=== PATIENT | female | born 1935 | race Caucasian/White ===

== ENCOUNTER 2021-01-09 12:39 | Inpatient (IN) | payer MEDICARE, MEDICAID, SELFPAY ==
--- NOTE | 2021-01-09 12:53 | XRR_ITS ---
PROCEDURE INFORMATION: Exam: XR Chest Exam date and time: 01/09/2021 12:53 PM Age: 85 years old Clinical indication: Other: Weakness; Patient HX: Altered mental status TECHNIQUE: Imaging protocol: XR of the chest. Views: 1 view. COMPARISON: CR Chest 1 view [id number] 08/05/2015 4:40 AM FINDINGS: Lungs: There is chronic lung change. No acute pneumonia or edema. Pleural spaces: Unremarkable. No pleural effusion. No pneumothorax. Heart/Mediastinum: Unremarkable. No cardiomegaly. Bones/joints: There is a thoracolumbar spine scoliosis. XR/XR chest 1V portable [id number] IMPRESSION: There are no acute concerning abnormalities. Radiation Dose CTDIVOL = (mGy): DLP = (mGy-cm)
--- NOTE | 2021-01-09 12:54 | ECG_ITS ---
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[id number] Requested By: Halie Mensah Order Number: [id number] Reading MD: ANANDA CORNELL Measurements Intervals [place] Rate: 96 P: 37 TN: 139 QRS: 45 QRSD: 82 T: 28 QT: 352 QTc: 447 Interpretive Statements SINUS RHYTHM LOW QRS VOLTAGE IN PRECORDIAL LEADS [QRS DEFLECTION < 1.0 mV IN CHEST LEADS] Compared to ECG 08/04/2015 10:28:42 Low QRS voltage now present Sinus tachycardia no longer present Myocardial infarct finding no longer present Electronically Signed On 01-09-2021 22:57:07 CDT by ANANDA CORNELL [id number] f
[2021-01-09 13:14] VITALS: BP 104/57; PULSE 97; RESP 18; TEMP 36.4; O2SAT 97; BMI 22.7
[2021-01-09 14:28] LABS: Basophils # 0.1 10^3/uL (0.0-0.1); Basophils % 0.3 %; Eosinophils # 0.2 10^3/uL (0.0-0.8); Hematocrit 49.8 % (37.0-47.0); Hemoglobin 15.7 g/dL (11.5-15.3); Lymphocytes # 4.4 10^3/uL (0.8-4.8); Lymphocytes % 24.3 %; Mean Corpuscular HGB Conc 31.5 g/dL (30.0-36.0); Mean Corpuscular Volume 101.4 fl (81-99); Mean Platelet Volume 10.2 fL (7.4-10.4); Monocytes # 1.1 10^3/uL (0.2-0.9); Monocytes % 5.9 %; Neutrophils # 12.17 10^3/uL (1.8-7.7); Neutrophils % 68.1 %; Nucleated Red Blood Cells % 0.1 %; Platelet Count 287 10^3/cmm (130-400); Red Blood Count 4.91 10^6/uL (4.1-5.3); Red Cell Distribution Width 16.6 % (12.1-15.1); White Blood Count 17.9 10^3/uL (4.0-10.0)
[2021-01-09 14:49] LABS: Troponin(5th) Baseline 40 ng/L (0-10)
[2021-01-09 14:51] LABS: Alanine Aminotransferase 105 U/L (0-33); Albumin Level 3.8 g/dL (3.5-5.2); Alkaline Phosphatase 71 IU/L (35-105); Aspartate Amino Transferase 54 U/L (0-32); Blood Urea Nitrogen 42 mg/dL (8-23); Calcium 9.5 mg/dL (8.5-10.5); Carbon Dioxide 31 mmol/L (22-29); Chloride 128 mmol/L (98-107); Globulin 3.3 g/dL (1.3-4.6); Glucose 182 mg/dL (65-115); Lipase 21 U/L (13-60); Osmolality Calculated 357 mOsm/kg (285-295); Total Bilirubin 0.7 mg/dL (0.15-1.2); Total Protein 7.1 g/dL (6.6-8.7)
[2021-01-09 14:53] LABS: Sodium 166 mmol/L (136-145)
--- NOTE | 2021-01-09 15:28 | W.ED.GENADLT ---
HPI - General Adult General: Chief complaint: General Medical Stated complaint: Weakness Time Seen by Provider: 01/09/21 15:17 History of Present Illness: HPI narrative: 85-year-old female who is brought in by family members. She is at home that she had elevated blood sugars they brought her to her doctor's office rechecked it was over 200 they did some other blood work and then called her back and referred her to the ER. On arrival here she is evaluated laboratory studies done shows sodium 160. She is nonverbal due to dementia which is her normal baseline. There is no history of any trauma. Onset (ago): day(s) Severity: severe Relieving factors: none Exacerbating factors: none Associated symptoms: Reports confusion Treatments prior to arrival: none Review of Systems General: Reports: ROS unobtainable due to medical condition and ROS unobtainable due to mental status Neuro: Reports: confusion PFS ED PFSH: Medical History Advanced dementia Breast cancer Cecal volvulus Congestive heart failure Diabetic foot ulcer Pulmonary embolism Pulmonary fibrosis determined by high resolution computed tomography Severe protein-energy malnutrition Type 2 diabetes mellitus Surgical History H/O hemicolectomy History of cholecystectomy Physical Exam Const: COMMON NORMALS: no acute distress HENMT: COMMON NORMALS: normocephalic and atraumatic HEAD & SCALP: normocephalic and atraumatic OTHER: Oral mucosa dry Neck/C-Spine: COMMON NORMALS: no JVD Resp: COMMON NORMALS: normal respiratory effort, No retractions, No use of accessory muscles and clear to auscultation bilaterally AUSCULTATION: clear to auscultation bilaterally Cardio: COMMON NORMALS: no JVD, regular rate, regular rhythm and No murmurs present (Cardio) RATE: regular rate RHYTHM: regular rhythm GI: COMMON NORMALS: Soft to palpation and No hepatosplenomegaly present AUSCULTATION: Yes normoactive bowel sounds PALPATION: Yes Soft to palpation, No Tenderness to palpation present (GI), No Guarding due to palpation present (GI) and Yes No hepatosplenomegaly present Extremity: COMMON NORMALS: normal to inspection, capillary refill normal, no clubbing, cyanosis or edema, no calf tenderness and no pedal edema Skin: COMMON NORMALS: no rashes or lesions noted GENERAL SKIN EXAM: no rashes or lesions noted Course Vital Signs: Vital signs: Vital Signs Temperature 98.2 F 01/10/21 11:30 Pulse Rate 79 01/10/21 11:30 Respiratory Rate 16 01/10/21 11:30 Blood Pressure 122/72 01/10/21 11:30 Pulse Oximetry 97 01/10/21 11:30 MDM - General Adult MDM Narrative: Medical decision making narrative: Patient has significant hypernatremia and altered mental status as well as a UTI. Working to go ahead and admit her. Some of this is just poor p.o. intake. IV fluids discussed with hospitalist orders written. Lab Data: Labs: Lab Results 01/09/21 01/09/21 01/09/21 13:25 14:19 14:19 WBC 17.9 10^3/uL H 10 ^3/uL (4.0-10.0) RBC 4.91 10^6/uL 10^6 /uL (4.1-5.3) Hgb 15.7 g/dL H g/dL (11.5-15.3) Hct 49.8 % H % (37.0-47.0) MCV 101.4 fl H fl (81-99) MCH 32.0 pg pg (28.0-34.0) MCHC 31.5 g/dL g/dL (30.0-36.0) RDW 16.6 % H % (12.1-15.1) Plt Count 287 10^3/cmm 10^3 /cmm (130-400) MPV 10.2 fL fL (7.4-10.4) Neut % (Auto) 68.1 % % Lymph % (Auto) 24.3 % % [place] % (Auto) 5.9 % % Eos % (Auto) 1.0 % % Baso % (Auto) 0.3 % % Neut # (Auto) 12.17 10^3/uL H 1 0^3/uL (1.8-7.7) Lymph # (Auto) 4.4 10^3/uL 10^3/ uL (0.8-4.8) [place] # (Auto) 1.1 10^3/uL H 10^ 3/uL (0.2-0.9) Eos # (Auto) 0.2 10^3/uL 10^3/ uL (0.0-0.8) Baso # (Auto) 0.1 10^3/uL 10^3/ uL (0.0-0.1) Nucleated RBC % (a uto) 0.1 % % Nucleated RBCs # 0.0 /100WBC /100W BC Sodium 166 mmol/L H* mmo l/L (136-145) Potassium 4.0 mmol/L mmol/L (3.5-5.1) Chloride 128 mmol/L H mmol /L (98-107) Carbon Dioxide 31 mmol/L H mmol/ L (22-29) Anion Gap 11.0 (5-19) BUN 42 mg/dL H mg/dL (8-23) Creatinine 0.9 mg/dL mg/dL (0.5-0.9) GFR Calculation Not Reportable Glucose 182 mg/dL H mg/dL (65-115) POC Glucose 230 mg/dL H mg/dL (70-110) Calculated Osmolal ity 357 mOsm/kg H mOs m/kg (285-295) Calcium 9.5 mg/dL mg/dL (8.5-10.5) Iron TIBC % Saturation Unsat Iron Binding Total Bilirubin 0.7 mg/dL mg/dL (0.15-1.2) AST 54 U/L H U/L (0-32) ALT 105 U/L H U/L (0-33) Alkaline Phosphata se 71 IU/L IU/L (35-105) Troponin T Baselin e Total Protein 7.1 g/dL g/dL (6.6-8.7) Albumin 3.8 g/dL g/dL (3.5-5.2) Globulin 3.3 g/dL g/dL (1.3-4.6) Lipase 21 U/L U/L (13-60) Vitamin B12 Folate Procalcitonin TSH Urine Color Urine Appearance Urine pH Ur Specific Gravit y Urine Protein Urine Glucose (UA) Urine Ketones Urine Blood Urine Nitrate Urine Bilirubin Prot Sulfosalicyli c Acd Urine Urobilinogen Ur Leukocyte Lisa ase Urine RBC Urine WBC Ur Squamous Epith Cells Amorphous Sediment Urine Bacteria Ur Random Sodium Ur Random Potassiu m Ur Random Chloride RPR 1001/09/21 01/09/21 14:19 14:19 14:19 WBC RBC Hgb Hct MCV MCH MCHC RDW Plt Count MPV Neut % (Auto) Lymph % (Auto) [place] % (Auto) Eos % (Auto) Baso % (Auto) Neut # (Auto) Lymph # (Auto) [place] # (Auto) Eos # (Auto) Baso # (Auto) Nucleated RBC % (a uto) Nucleated RBCs # Sodium Potassium Chloride Carbon Dioxide Anion Gap BUN Creatinine GFR Calculation Glucose POC Glucose Calculated Osmolal ity Calcium Iron 32 ug/dL L ug/dL (37-145) TIBC 190 mcg/dl mcg/dl % Saturation 16.8 % L % (20-50) Unsat Iron Binding 158 ug/dL ug/dL (112-347) Total Bilirubin AST ALT Alkaline Phosphata se Troponin T Baselin e 40 ng/L H ng/L (0-10) Total Protein Albumin Globulin Lipase Vitamin B12 Folate Procalcitonin 0.29 ng/mL ng/mL (0-0.5) TSH 2.31 uIU/mL uIU/m L Cancelled (0.27-4.20) Urine Color Urine Appearance Urine pH Ur Specific Gravit y Urine Protein Urine Glucose (UA) Urine Ketones Urine Blood Urine Nitrate Urine Bilirubin Prot Sulfosalicyli c Acd Urine Urobilinogen Ur Leukocyte Lisa ase Urine RBC Urine WBC Ur Squamous Epith Cells Amorphous Sediment Urine Bacteria Ur Random Sodium Ur Random Potassiu m Ur Random Chloride RPR 01/09/21 01/09/21 01/09/21 14:19 14:19 15:27 WBC RBC Hgb Hct MCV MCH MCHC RDW Plt Count MPV Neut % (Auto) Lymph % (Auto) [place] % (Auto) Eos % (Auto) Baso % (Auto) Neut # (Auto) Lymph # (Auto) [place] # (Auto) Eos # (Auto) Baso # (Auto) Nucleated RBC % (a uto) Nucleated RBCs # Sodium Potassium Chloride Carbon Dioxide Anion Gap BUN Creatinine GFR Calculation Glucose POC Glucose Calculated Osmolal ity Calcium Iron TIBC % Saturation Unsat Iron Binding Total Bilirubin AST ALT Alkaline Phosphata se Troponin T Baselin e Total Protein Albumin Globulin Lipase Vitamin B12 595 pg/mL pg/mL (232-1245) Folate > 20.0 ng/mL ng/m L (4.8-37.3) Procalcitonin TSH Urine Color Yellow (Yellow) Urine Appearance Cloudy (CLEAR) Urine pH 8 H (5-7) Ur Specific Gravit y 1.010 (1.005-1.030) Urine Protein Neg (Negative) Urine Glucose (UA) Norm (Normal) Urine Ketones Negative (Negative) Urine Blood 3+ H (Negative) Urine Nitrate Negative (Negative) Urine Bilirubin Neg (Negative) Prot Sulfosalicyli c Acd Positive (Negative) Urine Urobilinogen Norm mg/dL mg/dL (Negative) Ur Leukocyte Lisa ase 1+ H (Negative) Urine RBC 25-40 /hpf H /hpf (0-2) Urine WBC >100 /hpf H /hpf (0-5) Ur Squamous Epith Cells 0-4 /hpf H /hpf (0-5) Amorphous Sediment Not Reportable Urine Bacteria 4+ /hpf H /hpf (NONE) Ur Random Sodium Ur Random [place]ass[place] m Ur Random Chloride RPR Nonreactive (Nonreactive) 01/09/21 15:27 WBC RBC Hgb Hct MCV MCH MCHC RDW Plt Count MPV Neut % (Auto) Lymph % (Auto) [place] % (Auto) Eos % (Auto) Baso % (Auto) Neut # (Auto) Lymph # (Auto) [place] # (Auto) Eos # (Auto) Baso # (Auto) Nucleated RBC % (a uto) Nucleated RBCs # Sodium Potassium Chloride Carbon Dioxide Anion Gap BUN Creatinine GFR Calculation Glucose POC Glucose Calculated Osmolal ity Calcium Iron TIBC % Saturation Unsat Iron Binding Total Bilirubin AST ALT Alkaline Phosphata se Troponin T Baselin e Total Protein Albumin Globulin Lipase Vitamin B12 Folate Procalcitonin TSH Urine Color Urine Appearance Urine pH Ur Specific Gravit y Urine Protein Urine Glucose (UA) Urine Ketones Urine Blood Urine Nitrate Urine Bilirubin Prot Sulfosalicyli c Acd Urine Urobilinogen Ur Leukocyte Lisa ase Urine RBC Urine WBC Ur Squamous Epith Cells Amorphous Sediment Urine Bacteria Ur Random Sodium 108 mmol/L mmol/L Ur Random [place] m > 107 mmol/L mmol /L Ur Random Chloride 123 mmol/L mmol/L RPR Discharge Plan Discharge Patient Disposition: Admitted As Inpatient Admit Provider: Miky Rey Clinical Impression: Hypernatremia, AMS (altered mental status), UTI (urinary tract infection), Dehydration, Type 2 diabetes mellitus, Severe protein-energy malnutrition, Advanced dementia Condition: Stable Coding Level of Care Code ED System Validation Engineer for Eden Waterman
--- NOTE | 2021-01-09 15:37 | PC.PHAR ---
pts son states he takes the care of the pts medications-pts son states the dr just started the pt back on metformin-pts son states the pt is taking 500mg qam-rx last filled 500mg bid on 06/11/20-notes are made in the pharmacy comments-pts son states he gives the pt milk of mag 4 tablespoonfuls qam
[2021-01-09 15:55] VITALS: BP 131/69; PULSE 88; RESP 19; O2SAT 99
[2021-01-09 16:02] LABS: Blood Urine 3+ (Negative); Glucose Urine UA Norm (Normal); Ketones Urine Negative (Negative); Nitrate Urine Negative (Negative); Protein Urine Neg (Negative); Urine Appearance Cloudy (CLEAR); Urine Color Yellow (Yellow); pH Urine 8 (5-7)
[2021-01-09 16:03] LABS: Add Urine Microscopic? YES; Bilirubin Urine Neg (Negative); Leukocyte Esterase Urine 1+ (Negative); Sulfosalicylic Acid Urine Positive (Negative); Urobilinogen Urine Norm (Negative)
[2021-01-09 16:06] LABS: Bacteria Urine 4+ /hpf; RBC Urine 25-40 /hpf (0-2); Squamous Epithelial Cell Urine 0-4 /hpf (0-5); WBC Urine >100 /hpf (0-5)
[2021-01-09 16:07] LABS: Add Urine Culture? Yes
--- NOTE | 2021-01-09 16:08 | CTR_ITS ---
PROCEDURE INFORMATION: Exam: CT Head Without Contrast Exam date and time: 01/09/2021 4:08 PM Age: 85 years old Clinical indication: Injury or trauma; Fall; Blunt trauma (contusions or hematomas) TECHNIQUE: Imaging protocol: Computed tomography of the head without contrast. Radiation optimization: All CT scans at this facility use at least one of these dose optimization techniques: automated exposure control; mA and/or kV adjustment per patient size (includes targeted exams where dose is matched to clinical indication); or iterative reconstruction. COMPARISON: CT head wo con* [id number] 01/27/2015 1:34 PM RADIATION DOSE METRICS: Total DLP (mGy-cm): 1614.97 FINDINGS: Brain: Moderate white matter disease and volume loss are identified. There is no acute infarct or edema. No hemorrhage. Cerebral ventricles: No ventriculomegaly. Paranasal sinuses: Visualized sinuses are unremarkable. No fluid levels. Mastoid air cells: Visualized mastoid air cells are well aerated. Bones/joints: Unremarkable. No acute fracture. Soft tissues: Unremarkable. CT/CT head wo con* [id number] IMPRESSION: There are no acute concerning abnormalities. Radiation Dose CTDIVOL = (mGy): DLP = 1614.97 (mGy-cm)
--- NOTE | 2021-01-09 16:08 | CTR_ITS ---
PROCEDURE INFORMATION: Exam: CT Cervical Spine Without Contrast Exam date and time: 01/09/2021 4:08 PM Age: 85 years old Clinical indication: Injury or trauma; Fall; Blunt trauma; Additional info: Fall. PT non verbal TECHNIQUE: Imaging protocol: Computed tomography images of the cervical spine without contrast. Radiation optimization: All CT scans at this facility use at least one of these dose optimization techniques: automated exposure control; mA and/or kV adjustment per patient size (includes targeted exams where dose is matched to clinical indication); or iterative reconstruction. COMPARISON: CT facial bones wo con* [id number] 01/09/2021 4:43 PM RADIATION DOSE METRICS: Total DLP (mGy-cm): 349.16 FINDINGS: Vertebrae: No acute fracture. Normal alignment. Degenerative change is identified in the spine. There is disc space narrowing and osteophyte formation especially at C5/6 and C6/7. Soft tissues: Unremarkable. Lungs: Lung apices are normal. CT/CT cervical spin wo con* [id number] IMPRESSION: There is no evidence for fracture or facet dislocation. Radiation Dose CTDIVOL = (mGy): DLP = 349.16 (mGy-cm)
--- NOTE | 2021-01-09 16:08 | CTR_ITS ---
PROCEDURE INFORMATION: Exam: CT Maxillofacial Without Contrast Exam date and time: 01/09/2021 4:08 PM Age: 85 years old Clinical indication: Injury or trauma; Blunt trauma (contusions or hematomas); Forehead; Injury details: Fall. PT non verbal; Additional info: Fall trauma TECHNIQUE: Imaging protocol: Computed tomography images of the face without contrast. Radiation optimization: All CT scans at this facility use at least one of these dose optimization techniques: automated exposure control; mA and/or kV adjustment per patient size (includes targeted exams where dose is matched to clinical indication); or iterative reconstruction. COMPARISON: CT head wo con* [id number] 01/09/2021 4:39 PM RADIATION DOSE METRICS: Total DLP (mGy-cm): 1462.41 FINDINGS: Orbital cavity: Orbits are normal. Globes are unremarkable. Bones/joints: There is a minimally displaced nasal fracture. The zygomatic arch, pterygoid plates and mandible are intact. Paranasal sinuses: Normal. No air-fluid levels. Soft tissues: Unremarkable. CT/CT facial bones wo con* [id number] IMPRESSION: There is a minimally displaced nasal fracture. Radiation Dose CTDIVOL = (mGy): DLP = 1462.41 (mGy-cm)
[2021-01-09 17:11] VITALS: BP 107/72; PULSE 87; RESP 20; O2SAT 98
[2021-01-09 17:11] LABS: Troponin 5 2HR 35.39 ng/L (0-10)
[2021-01-09 17:13] LABS: Troponin 5 2HR Delta -4.61 ABS# (0-10)
[2021-01-09 17:16] LABS: Glucose Point of Care 230 mg/dL (70-110)
[2021-01-09 17:42] LABS: Procalcitonin 0.29 ng/mL (0-0.5); Thyroid Stimulating Hormone 2.31 uIU/mL (0.27-4.20)
[2021-01-09] MEDS: dextrose 5% 1,000 ML 75 ML IV (17:51)
[2021-01-09] MEDS: famotidine 20 mg/2 mL INJ IVP (17:51)
[2021-01-09] MEDS: cefTRIAXone 1,000 MG in sodium chloride 0.9% (plus) 50 ML 100 MG IV (17:52)
[2021-01-09 17:53] LABS: Iron 32 ug/dL (37-145); Percent Saturation 16.8 % (20-50); Total Iron Binding Capacity 190 mcg/dl; Unsaturated Iron Binding 158 ug/dL (112-347)
[2021-01-09 17:55] LABS: Urine Random Chloride 123 mmol/L; Urine Random Sodium 108 mmol/L
[2021-01-09 18:28] VITALS: BP 120/88; PULSE 87; RESP 16; O2SAT 98
--- NOTE | 2021-01-09 18:54 | ECG_ITS ---
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[id number] Requested By: Halie Mensah Order Number: [id number] Reading MD: ANANDA CORNELL Measurements Intervals [place] Rate: 81 P: 47 [place]: 164 QRS: 2 QRSD: 57 T: -2 QT: 314 QTc: 366 Interpretive Statements SINUS RHYTHM LOW QRS VOLTAGE IN PRECORDIAL LEADS [QRS DEFLECTION < 1.0 mV IN CHEST LEADS] POSSIBLE ANTERIOR MYOCARDIAL INFARCTION , OF INDETERMINATE AGE [30 ms Q WAVE IN V3/V4, OR R < 0.2 mV IN V4] Compared to ECG 01/09/2021 13:30:02 Myocardial infarct finding now present Electronically Signed On 01-09-2021 22:57:35 CDT by ANANDA CORNELL [id number]
--- NOTE | 2021-01-09 19:14 | CTR_ITS ---
PROCEDURE INFORMATION: Exam: CT Chest With Contrast; Diagnostic Exam date and time: 01/09/2021 7:14 PM Age: 85 years old Clinical indication: Fever; Shortness of breath; Additional info: Sepsis, possible pe TECHNIQUE: Imaging protocol: Diagnostic computed tomography of the chest with contrast. Radiation optimization: All CT scans at this facility use at least one of these dose optimization techniques: automated exposure control; mA and/or kV adjustment per patient size (includes targeted exams where dose is matched to clinical indication); or iterative reconstruction. Contrast material: OMNI 300; Contrast volume: 95 ml; Contrast route: INTRAVENOUS (IV); COMPARISON: CR XR chest 1V portable [id number] 01/09/2021 1:03 PM RADIATION DOSE METRICS: Total DLP (mGy-cm): 1702.2 FINDINGS: Lungs: There are bilateral subpleural densities. Honeycombing is suspected in the bilateral lung bases. No dominant lung mass. Pleural spaces: Unremarkable. No pneumothorax. No pleural effusion. Heart: Cardiomegaly is identified. Aorta: Unremarkable. No aortic aneurysm. Lymph nodes: Unremarkable. No enlarged lymph nodes. Bones/joints: Degenerative change is identified in the spine. Soft tissues: Unremarkable. No evidence for a pulmonary artery embolus. IMPRESSION: There is no evidence for a pulmonary artery embolus. Findings are suggestive of pulmonary fibrosis. PROCEDURE INFORMATION: Exam: CT Abdomen And Pelvis With Contrast Exam date and time: 01/09/2021 7:14 PM Age: 85 years old Clinical indication: Fever; Shortness of breath; Additional info: Sepsis, possible pe TECHNIQUE: Imaging protocol: Computed tomography of the abdomen and pelvis with contrast. Radiation optimization: All CT scans at this facility use at least one of these dose optimization techniques: automated exposure control; mA and/or kV adjustment per patient size (includes targeted exams where dose is matched to clinical indication); or iterative reconstruction. Contrast material: OMNI 300; Contrast volume: 95 ml; Contrast route: INTRAVENOUS (IV); COMPARISON: CR XR chest 1V portable [id number] 01/09/2021 1:03 PM RADIATION DOSE METRICS: Total DLP (mGy-cm): 1702.2 FINDINGS: Liver: Normal. No mass. Gallbladder and bile ducts: There has been a cholecystectomy. Pancreas: Normal. No ductal dilation. Spleen: Normal. No splenomegaly. Adrenal glands: Normal. No mass. Kidneys and ureters: Normal. No hydronephrosis. Stomach and bowel: Colonic diverticula are present although there are no CT findings to suggest diverticulitis. No bowel obstruction or wall thickening. Appendix: There has been appendectomy. Intraperitoneal space: Unremarkable. No free air. No significant fluid collection. Vasculature: Unremarkable. No abdominal aortic aneurysm. Lymph nodes: Unremarkable. No enlarged lymph nodes. Urinary bladder: There is mild bladder wall thickening. No bladder emphysema or calcification. Reproductive: Unremarkable as visualized. Bones/joints: Unremarkable. No acute fracture. Soft tissues: Unremarkable. CT/CT chest abd pel w con* IMPRESSION: Findings are suggestive of mild bladder cystitis.Clinical correlation is advised. Radiation Dose CTDIVOL = (mGy): DLP = 1702.2~1702.2 (mGy-cm)
--- NOTE | 2021-01-09 19:16 | P.HP_ITS ---
Providers/Chief Complaint Admitting Physician: Miky Rey MD Primary Care Provider: Mahesh Perera MD Chief Complaint: Weakness History of Present Illness Hisptory taken by chart review and thru ERP Joleen Orr is a 85 year old female with PMH of advanced dementia, PE, pulmonary fibrosis, T2DM brought in today from home by son because of worsening weakness. As per the son at baseline pt eats minced foods and is dependant on ADLs on son and IHS. But was usually ambulatory till few weeks ago since when she has been getting progressively weak with possible fall few days ago. In ER she was found to have WBC of 17.9, hb of 15.7, na of 166, cl of 128, CO2 of 31, UA concerning for UTI with various imaging as below. Asper my discussion with son over the phone who is primary caregiver, patient is full code and if needed he will be okay with PEG tube placement as well. Review of Systems General: Reports: ROS unobtainable due to mental status Medications/Allergies Home Medications Medication Instructions Recorded Confirmed Last Taken Type acetaminophen [Tylenol Ex Str 500 mg PO BID 01/09/21 01/09/21 01/09/21 History Rapid Release] albuterol sulfate 2.5 mg INHALATION Q4H PRN 01/09/21 01/09/21 Unknown History diphenhydramine HCl [Allergy 25 mg PO BID 01/09/21 01/09/21 01/09/21 History Relief(diphenhydramin)] magnesium hydroxide [Milk of See Rx Instructions .ROUTE .COMPLEX 01/09/21 01/09/21 01/09/21 History Magnesia] metformin 500 mg PO QAM 01/09/21 01/09/21 01/09/21 History montelukast 10 mg PO QAM 01/09/21 01/09/21 01/09/21 History multivitamin 1 tab PO QAM 01/09/21 01/09/21 01/09/21 History Allergies Allergy/AdvReac Type Severity Reaction Status Date / Time No Known Allergies Allergy Unverified 01/09/21 15:37 PFSH Acute PFSH: Medical History (Updated 01/09/21 @ 22:29 by Miky Rey MD) Advanced dementia Breast cancer Cecal volvulus Congestive heart failure Diabetic foot ulcer Pulmonary embolism Pulmonary fibrosis determined by high resolution computed tomography Severe protein-energy malnutrition Type 2 diabetes mellitus Surgical History (Updated 01/09/21 @ 17:11 by Miky Rey MD) H/O hemicolectomy History of cholecystectomy Vitals/I&O/Wt Last Vital Signs Temp 97.5 F L 01/09/21 13:14 Pulse 87 01/09/21 18:28 Resp 16 01/09/21 18:28 BP 120/88 01/09/21 18:28 Pulse Ox 98 01/09/21 18:28 Weight last 48 hrs Weight 65.771 kg Physical Exam Narrative: EXAM NARRATIVE: General: No acute distress, awake but oriented, aphasic (baseline as per son), dehydrated HEENT: PERRLA, pupils bilaterally equal and reactive Chest: Bronchial breath sounds, equal good air entry bilaterally CVS: S1-S2 regular, no murmurs, no tachycardia, no gallops, no rubs Abdomen: Soft, no organomegaly, bowel sounds present, central post OP well healed scar present. Neuro: No focal deficits, moving all limbs Data : 01/09/21 14:19 01/09/21 20:47 Micro: Microbiology 01/09/21 17:36 Blood Culture - Preliminary Blood SPECIMEN COLLECTED 01/09/21 17:30 Blood Culture - Preliminary Blood SPECIMEN COLLECTED A&P Assessment and plan (1) Hypernatremia: Status: Acute (2) AMS (altered mental status): Status: Acute (3) Advanced dementia: Status: Acute (4) UTI (urinary tract infection): Status: Acute (5) Dehydration: Status: Acute (6) Severe protein-energy malnutrition: Status: Acute (7) Type 2 diabetes mellitus: Status: Acute Additional A&P Information AMS : Most likely not too different than baseline. Worsening of severe advance dementia 2/2 hypernatremia and UTI. UTI: F/u Bcx, UCx, Legionella, bacterial antigen Start on IV ceftriaxone. Hypernatremia: 2/2 Dehydration from poor oral intake. FW deficit- 5.5L Check urine lytes. D5 @ 75/hr BMP Q8h. If no improvement will try NGT placement for further FW supplementation. T2DM: Check A1c, lipid panel ISS low dose sliding scale Q4h Advance dementia: Not on any oral meds PT/Speech eval. NPO for now. Will advance diet as per eval. Check Iron panel, random cortisol level, b12, folate, RPR, lipid panel, A1c, TSH, lower limb doppler Code status: FC as per son. NPO Heparin Q12h Case management consult Attestations Medical Necessity Statement*: For more than 2 MN for Severe hypernatremia, UTI, severe dementia Time Spent in Patient Care: Greater than 35 minutes (>than 50% of time spent in counselling and/or direct pt care on unit) . Coding Level of Care Code Acute Experimental Rocketsled Mechanic for Chg Fwd Diagnoses Hypernatremia E87.0 AMS (altered mental status) R41.82 Advanced dementia F03.90 UTI (urinary tract infection) N39.0 Dehydration E86.0 Severe protein-energy malnutrition E43 Type 2 diabetes mellitus E11.9
[2021-01-09] MEDS: iohexol 300 mg/mL 100 mL Btl IV (19:46)
[2021-01-09 21:30] VITALS: BP 139/84; PULSE 98; RESP 16; TEMP 36.3; O2SAT 95
[2021-01-09 21:31] LABS: Blood Urea Nitrogen 41 mg/dL (8-23); Carbon Dioxide 27 mmol/L (22-29); Chloride 127 mmol/L (98-107); Glucose 183 mg/dL (65-115); Osmolality Calculated 351 mOsm/kg (285-295)
[2021-01-09 21:35] LABS: Sodium 163 mmol/L (136-145)
[2021-01-09 22:15] LABS: Cortisol Random 17.39 ug/dL (2.47-19.5)
[2021-01-09 22:21] LABS: Anion Gap 13.3 (5-19); Potassium 4.3 mmol/L (3.5-5.1)
[2021-01-09] MEDS: heparin 5,000 unit/mL INJ 1 mL 5000 UNIT SUBCUT (22:33)
[2021-01-09 23:06] LABS: Glucose Point of Care 131 mg/dL (70-110)
[2021-01-09 23:19] VITALS: BMI 22.7
[2021-01-10] VITALS (7 sets, daily range): BP systolic 107–122; BP diastolic 52–73; PULSE 79–96; RESP 16–17; TEMP 36.4–36.8; O2SAT 94–100
[2021-01-10 01:41] LABS: Glucose Point of Care 155 mg/dL (70-110)
[2021-01-10 01:42] LABS: Anion Gap 13.1 (5-19); Blood Urea Nitrogen 41 mg/dL (8-23); Calcium 8.9 mg/dL (8.5-10.5); Carbon Dioxide 29 mmol/L (22-29); Chloride 127 mmol/L (98-107); Glucose 169 mg/dL (65-115); Osmolality Calculated 354 mOsm/kg (285-295); Potassium 4.1 mmol/L (3.5-5.1)
[2021-01-10 01:51] LABS: Sodium 165 mmol/L (136-145)
[2021-01-10] MEDS: insulin lispro 100 unit/1 mL SUBCUT (02:31)
[2021-01-10 02:40] LABS: Vitamin B12 595 pg/mL (232-1245)
[2021-01-10 02:42] LABS: Folate Level > 20.0 ng/mL (4.8-37.3)
[2021-01-10 02:47] LABS: Rapid Plasma Reagin Syphilis Nonreactive (Nonreactive)
[2021-01-10] MEDS: famotidine 20 mg/2 mL INJ IVP ×2 (05:01→19:27)
[2021-01-10 05:35] LABS: Glucose Point of Care 117 mg/dL (70-110)
[2021-01-10 05:42] LABS: Basophils # 0.1 10^3/uL (0.0-0.1); Basophils % 0.3 %; Eosinophils # 0.4 10^3/uL (0.0-0.8); Eosinophils % 2.3 %; Hematocrit 45.1 % (37.0-47.0); Hemoglobin 13.8 g/dL (11.5-15.3); Lymphocytes % 23.3 %; Mean Corpuscular HGB Conc 30.6 g/dL (30.0-36.0); Mean Corpuscular Hemoglobin 31.7 pg (28.0-34.0); Mean Corpuscular Volume 103.4 fl (81-99); Mean Platelet Volume 10.8 fL (7.4-10.4); Monocytes % 5.6 %; Neutrophils # 11.73 10^3/uL (1.8-7.7); Neutrophils % 68.1 %; Nucleated Red Blood Cells % 0 %; Platelet Count 250 10^3/cmm (130-400); Red Blood Count 4.36 10^6/uL (4.1-5.3); Red Cell Distribution Width 16.4 % (12.1-15.1); White Blood Count 17.2 10^3/uL (4.0-10.0)
[2021-01-10 06:51] LABS: Estmated Average Glucose 120; Hemoglobin A1C 5.8 % (4.0-6.0)
[2021-01-10 08:41] LABS: Alanine Aminotransferase 76 U/L (0-33); Albumin Level 3.4 g/dL (3.5-5.2); Alkaline Phosphatase 69 IU/L (35-105); Aspartate Amino Transferase 30 U/L (0-32); Blood Urea Nitrogen 38 mg/dL (8-23); Calcium 8.8 mg/dL (8.5-10.5); Carbon Dioxide 29 mmol/L (22-29); Chloride 124 mmol/L (98-107); Chol HDL Ratio 4.42 mg/dL (0.0-4.40); Cholesterol 137 mg/dL (0-200); Globulin 3.4 g/dL (1.3-4.6); Glucose 144 mg/dL (65-115); HDL Cholesterol 31 mg/dL (60-100); LDL Cholesterol Calculated 69 mg/dL (50-129); Magnesium 2.5 mg/dL (1.7-2.3); Osmolality Calculated 346 mOsm/kg (285-295); Phosphorus 3.8 mg/dL (2.5-4.5); Total Bilirubin 1.2 mg/dL (0.15-1.2); Total Protein 6.8 g/dL (6.6-8.7); Triglycerides 185 mg/dL (0-150); VLDL Cholestrol Calculation 37 mg/dL (0-30)
[2021-01-10 08:52] LABS: Anion Gap 12.8 (5-19); Sodium 162 mmol/L (136-145)
[2021-01-10 08:53] LABS: Potassium 3.8 mmol/L (3.5-5.1)
[2021-01-10 09:19] LABS: Glucose Point of Care 109 mg/dL (70-110)
[2021-01-10] MEDS: heparin 5,000 unit/mL INJ 1 mL 5000 UNIT SUBCUT ×2 (09:28→21:23)
--- NOTE | 2021-01-10 10:13 | PC.CHAP ---
Pastoral Care Encounter/Spiritual Assessment Type of Contact [] Declined lighting specialist visit [] Patient/Family/Request visit [] Outpatient visit [] Follow-up visit [] Physician referral [] Code/Alert [x] Routine visit [] Staff referral [] Actively dying [] Patient sleeping [] Family support [] [] Out of room [] Palliative care [] [] Receiving care in room [] Pre-surgical visit [] Trauma [] Long length of stay [] ICU visit [] Other: Relational/Emotional Strength [x] Patient feels connected with others/family/visitors/staff [] Distress [] Loneliness/isolation [] Abandonment Spirituality of Patient [x] Person of Izabel [] Attends Jehovah'S Witness of their Iz[place] [x] Believes in Prayer [] Reads Bible or Quaker materials [] There are Spiritual issues to be addressed Repair Department Manager Interventions [] Prayer [] Active listening [] Non-anxious presence [] Spiritual/emotional support [] Crisis/trauma care [] Spiritual counseling [] Bereavement support [] Provided bereavement packet [] Provided Bible/devotional materials [] Provided toy/stuffed animal, coloring book to patient or family member [] Provided Communion [] Anointing/[place] [] Salvation [x] Completed spiritual assessment [] Other: Impact on Illness or Injury [] Angry [] Fearful [] Anxious [] Often cries [] Exhaustion [] Unable to work [] Unable to attend latter day [] Unable to walk/stand [] Unable to read [] Unable to drive [] Unable to eat/drink [] Unable to sleep [] Unable to be with family [] Patient intubated [] Other: Summary Time spent with patient 15 min
[2021-01-10 12:53] LABS: Glucose Point of Care 112 mg/dL (70-110)
--- NOTE | 2021-01-10 12:56 | XR_ITS ---
WS: [id number] Portable AP upright chest, 01/10/2021 Clinical Data: NG TUBE PLACEMENT Comparison: Portable chest, 01/09/2021. Findings: The nasogastric tube ends in the fundus of the stomach. 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 The right diaphragm is elevated. XR/XR chest 1V portable [id number] Impression: Nasogastric tube ending in the fundus of the stomach.
--- NOTE | 2021-01-10 13:15 | PM.PN ---
Subjective Subjective: Interval history: No complaints overnight. Has remained hemodynamically stable and afebrile. On examination still aphasic, confused but tracking today. Vitals/I&O/Wt Last Vital Signs Temp 98.2 F 01/10/21 11:30 Pulse 79 01/10/21 11:30 Resp 16 01/10/21 11:30 BP 122/72 01/10/21 11:30 Pulse Ox 97 01/10/21 11:30 01/09/21 01/10/21 01/10/21 22:59 06:59 14:59 Intake Total 50 / 50 600 / 600 Balance 50 / 50 600 / 600 Weight last 48 hrs Weight 57.323 kg Weight 65.771 kg Weight 65.771 kg Physical Exam Narrative: EXAM NARRATIVE: General: No acute distress, awake but oriented, aphasic (baseline as per son), dehydrated HEENT: PERRLA, pupils bilaterally equal and reactive Chest: Bronchial breath sounds, equal good air entry bilaterally CVS: S1-S2 regular, no murmurs, no tachycardia, no gallops, no rubs Abdomen: Soft, no organomegaly, bowel sounds present, central post OP well healed scar present. Neuro: No focal deficits, moving all limbs Urinary Catheter Management^: Garcia: Cath Placed During This Visit: yes Reason for Continuing Indwelling Catheter: Other Urinary Catheter Date of Insertion: 01/10/21 Urinary Catheter Time of Insertion: 02:35 Data : 01/10/21 05:00 01/10/21 07:29 Micro: Microbiology 01/09/21 15:27 Urine Culture - Preliminary Urine Catheterized Gram Negative Rods 01/09/21 15:27 Legionella Urinary Antigen - Final Urine Catheterized 01/09/21 15:27 Bacterial Antigens - Final Urine Kidney 01/09/21 17:36 Blood Culture - Preliminary Blood SPECIMEN COLLECTED 01/09/21 17:30 Blood Culture - Preliminary Blood SPECIMEN COLLECTED A&P Assessment and plan (1) Hypernatremia: Status: Acute (2) AMS (altered mental status): Status: Acute (3) Advanced dementia: Status: Acute (4) UTI (urinary tract infection): Status: Acute (5) Dehydration: Status: Acute (6) Severe protein-energy malnutrition: Status: Acute (7) Type 2 diabetes mellitus: Status: Acute Additional A&P Information AMS : Most likely not too different than baseline. Worsening of severe advance dementia 2/2 hypernatremia and UTI. UTI: Cultures so far negative, urine culture consistent with gram-negative rods. Urine Legionella bacterial antigen negative. Continue IV ceftriaxone. Will change antibiotics, de-escalate as per culture sensitivities. Hypernatremia: 2/2 Dehydration from poor oral intake. FW deficit-5.3 L Still elevated trending down very slowly. D5W at 125 cc/h. NG tube placement and free water flushes 250 every 4 hours. BMP Q8h. T2DM: HbA1c 5.8. No more diabetes. Continue with insulin sliding scale at low-dose every 4 hourly while patient is on D5W. Lipid panel appreciated. Advance dementia: Not on any oral meds. On review of notes she should be on Namenda 10 mg twice daily, Cymbalta 60 mg daily. For now we will start her on Namenda 10 mg twice daily. PT/Speech eval. NPO for now. Will advance diet as per eval. Iron panel consistent with mild iron deficiency anemia, random cortisol normal, TSH normal, vitamin B12, folate, lipase normal Code status: FC as per son. NPO Heparin Q12h Case management consult Attestations Medical Necessity Statement*: Patient for management of UTI, hypernatremia, altered mental status in setting of advanced dementia Time Spent in Patient Care: Greater than 35 minutes (>than 50% of time spent in counselling and/or direct pt care on unit). Coding Level of Care Code Acute Screen Roller for Chg Fwd Diagnoses Hypernatremia E87.0 AMS (altered mental status) R41.82 Advanced dementia F03.90 UTI (urinary tract infection) N39.0 Dehydration E86.0 Severe protein-energy malnutrition E43 Type 2 diabetes mellitus E11.9
[2021-01-10 14:26] LABS: Anion Gap 13.9 (5-19); Blood Urea Nitrogen 37 mg/dL (8-23); Calcium 8.7 mg/dL (8.5-10.5); Carbon Dioxide 26 mmol/L (22-29); Chloride 124 mmol/L (98-107); Glucose 135 mg/dL (65-115); Osmolality Calculated 341 mOsm/kg (285-295); Potassium 3.9 mmol/L (3.5-5.1); Sodium 160 mmol/L (136-145)
[2021-01-10 17:03] LABS: Glucose Point of Care 112 mg/dL (70-110)
--- NOTE | 2021-01-10 17:17 | PC.NUTR ---
Nutrition assessment for low BMI. Noted D5W at 125 ml/hr currently providing 150 mg dextrose, 510 kcal/day. Recommend weight clarification given 2 weights in EMR. Also recommend MANAGER ED evaluation. If able to consume oral diet, recommend Glucerna with meals for additional kcal/protein. If unable to consume oral diet, and enteral nutrition consistent with goals of care, recommend Glucerna 1.2, starting at 10 ml/hr, increasing by 10 ml/hr q 8 hrs to goal rate of 55 ml/hr, with 100 ml H2O flush q 4 hrs, to provide 1584 kcal, 79 g protein, and 1663 ml H2O. See full RD assessment for further details.
[2021-01-10 18:19] LABS: Blood Urea Nitrogen 38 mg/dL (8-23); Calcium 8.6 mg/dL (8.5-10.5); Carbon Dioxide 25 mmol/L (22-29); Chloride 124 mmol/L (98-107); Glucose 139 mg/dL (65-115); Osmolality Calculated 339 mOsm/kg (285-295); Sodium 159 mmol/L (136-145)
[2021-01-10 18:21] LABS: Anion Gap 14.1 (5-19); Potassium 4.1 mmol/L (3.5-5.1)
--- NOTE | 2021-01-10 18:40 | XRR_ITS ---
PROCEDURE INFORMATION: Exam: XR Chest Exam date and time: 01/10/2021 6:40 PM Age: 85 years old Clinical indication: Device placement; Ng tube; Additional info: Ng tube placement TECHNIQUE: Imaging protocol: XR of the chest. Views: 1 view. COMPARISON: CR XR chest 1V portable [id number] 01/10/2021 12:50 PM FINDINGS: Tubes, catheters and devices: Nasogastric tube tip seen 15.7 cm above the diaphragm in the thorax, repositioning advised. Lungs: Emphysematous changes. Bibasilar atelectasis versus infiltrate. Pleural spaces: Unremarkable. No pleural effusion. No pneumothorax. Heart/Mediastinum: Unremarkable. No cardiomegaly. Bones/joints: Unremarkable. XR/XR chest 1V portable [id number] IMPRESSION: 1. Nasogastric tube tip seen 15.7 cm above the diaphragm in the thorax, repositioning advised. 2. Emphysematous changes. 3. Bibasilar atelectasis versus infiltrate. Radiation Dose CTDIVOL = (mGy): DLP = (mGy-cm)
--- NOTE | 2021-01-10 19:14 | USCV_ITS ---
Joleen Orr Age: 85 Gender: F : 1935 Exam Date: 01/10/2021 05:49 Ordering Phys: Miky Rey MD Technologist: Marion Cole Exam Location: [facility] [place] Indication: SWELLING HISTORY: Lower extremity swelling. PROCEDURES: Venous duplex imaging was performed in bilateral lower extremities. The following venous structures were evaluated: common femoral vein, profunda vein, proximal portion of the greater saphenous vein, superficial femoral vein, and the popliteal vein. In addition, the posterior tibial and peroneal trunk were evaluated. Serial compression, augmentation maneuvers, and spectral Doppler flow evaluation were performed. FINDINGS: No evidence of DVT seen in any vessel visualized at this time. Right GSS non compressible at ankle and BK CONCLUSIONS No evidence of right lower extremity DVT. No evidence of left lower extremity DVT. Right Greater Saphenous vein non compressible below the knee and at ankle likely due to superficial thrombus Benedicto Garcia MD (Electronically Signed) Final Date: 10 January 2021 17:28 S
[2021-01-10] MEDS: cefTRIAXone 1,000 MG in sodium chloride 0.9% (plus) 50 ML 100 MG IV (19:28)
[2021-01-10 20:54] LABS: Glucose Point of Care 131 mg/dL (70-110)
--- NOTE | 2021-01-10 22:19 | XRR_ITS ---
PROCEDURE INFORMATION: Exam: XR Chest Exam date and time: 01/10/2021 10:19 PM Age: 85 years old Clinical indication: Device placement; Ng tube; Additional info: Ng tube placement TECHNIQUE: Imaging protocol: XR of the chest. Views: 1 view. COMPARISON: CR (CHEST, ) 01/10/2021 6:41 PM FINDINGS: Tubes, catheters and devices: Enteric tube tip below the left diaphragm over the gastric bubble. Lungs: Emphysematous changes. Pleural spaces: Unremarkable. No pleural effusion. No pneumothorax. Heart/Mediastinum: Unremarkable. No cardiomegaly. Bones/joints: Unremarkable. XR/XR chest 1V portable [id number] IMPRESSION: 1. Enteric tube tip below the left diaphragm over the gastric bubble. 2. Emphysematous changes. Radiation Dose CTDIVOL = (mGy): DLP = (mGy-cm)
[2021-01-10] MEDS: dextrose 5% 1,000 ML 125 ML IV (23:24)
[2021-01-11] VITALS (7 sets, daily range): BP systolic 99–129; BP diastolic 58–74; PULSE 78–87; RESP 15–20; TEMP 36.4–37.2; O2SAT 90–100
--- NOTE | 2021-01-11 00:13 | XRR_ITS ---
PROCEDURE INFORMATION: Exam: XR Chest Exam date and time: 01/11/2021 12:13 AM Age: 85 years old Clinical indication: Device placement; Ng tube; Additional info: Ng tube placement. PT keeps pulling at ng tube TECHNIQUE: Imaging protocol: XR of the chest. Views: 1 view. COMPARISON: CR (CHEST, ) 01/10/2021 10:19 PM FINDINGS: Tubes, catheters and devices: Enteric tube tip below the left diaphragm over the gastric bubble. Lungs: Patchy left lung airspace opacities may reflect atelectasis versus infiltrate, similar to prior exam. Emphysematous changes. Pleural spaces: Unremarkable. No pleural effusion. No pneumothorax. Heart/Mediastinum: Cardiomegaly. Bones/joints: Unremarkable. Intraperitoneal space: Right upper quadrant surgical clips. XR/XR chest 1V portable [id number] IMPRESSION: 1. Patchy left lung airspace opacities may reflect atelectasis versus infiltrate, similar to prior exam. 2. Enteric tube tip below the left diaphragm over the gastric bubble. 3. Right upper quadrant surgical clips. 4. Emphysematous changes. 5. Cardiomegaly. Radiation Dose CTDIVOL = (mGy): DLP = (mGy-cm)
[2021-01-11 01:04] LABS: Basophils % 0.2 %; Eosinophils # 0.1 10^3/uL (0.0-0.8); Eosinophils % 0.6 %; Hematocrit 47.2 % (37.0-47.0); Hemoglobin 14.4 g/dL (11.5-15.3); Lymphocytes # 2.9 10^3/uL (0.8-4.8); Lymphocytes % 18.1 %; Mean Corpuscular HGB Conc 30.5 g/dL (30.0-36.0); Mean Corpuscular Hemoglobin 31.5 pg (28.0-34.0); Mean Corpuscular Volume 103.3 fl (81-99); Mean Platelet Volume 10.5 fL (7.4-10.4); Monocytes # 0.8 10^3/uL (0.2-0.9); Monocytes % 5.1 %; Neutrophils % 75.5 %; Nucleated Red Blood Cells % 0.1 %; Platelet Count 268 10^3/cmm (130-400); Red Blood Count 4.57 10^6/uL (4.1-5.3); Red Cell Distribution Width 16.1 % (12.1-15.1); White Blood Count 16.1 10^3/uL (4.0-10.0)
[2021-01-11 01:08] LABS: Glucose Point of Care 174 mg/dL (70-110)
[2021-01-11 01:26] LABS: Anion Gap 13.2 (5-19); Blood Urea Nitrogen 39 mg/dL (8-23); Calcium 8.7 mg/dL (8.5-10.5); Carbon Dioxide 28 mmol/L (22-29); Chloride 120 mmol/L (98-107); Glucose 203 mg/dL (65-115); Osmolality Calculated 339 mOsm/kg (285-295); Potassium 4.2 mmol/L (3.5-5.1); Sodium 157 mmol/L (136-145)
[2021-01-11] MEDS: insulin lispro 100 unit/1 mL SUBCUT ×3 (01:50→18:50)
[2021-01-11] MEDS: sennosides 8.6 mg Tablet 17.2 MG PO ×2 (02:22→20:49)
[2021-01-11] MEDS: memantine 5 mg tablet 10 MG PO ×3 (02:22→17:45)
[2021-01-11] MEDS: docusate sodium 100 mg Capsule PO ×3 (02:22→17:45)
[2021-01-11 05:01] LABS: Glucose Point of Care 167 mg/dL (70-110)
[2021-01-11] MEDS: heparin 5,000 unit/mL INJ 1 mL 5000 UNIT SUBCUT ×2 (10:17→20:49)
[2021-01-11] MEDS: famotidine 20 mg/2 mL INJ IVP ×2 (10:17→17:45)
[2021-01-11 10:28] LABS: Anion Gap 13.7 (5-19); Blood Urea Nitrogen 39 mg/dL (8-23); Calcium 8.6 mg/dL (8.5-10.5); Carbon Dioxide 28 mmol/L (22-29); Chloride 116 mmol/L (98-107); Glucose 131 mg/dL (65-115); Osmolality Calculated 329 mOsm/kg (285-295); Potassium 3.7 mmol/L (3.5-5.1); Sodium 154 mmol/L (136-145)
--- NOTE | 2021-01-11 13:02 | PM.PN ---
Subjective Subjective: Interval history: No acute events overnight. Today morning on examination patient's son at bedside. Patient is little more awake than yesterday but still aphasic and not following commands or tracking. Son states that this is her baseline. Vitals/I&O/Wt Last Vital Signs Temp 98.3 F 01/11/21 12:00 Pulse 81 01/11/21 12:00 Resp 15 01/11/21 12:00 BP 107/74 01/11/21 12:00 Pulse Ox 100 01/11/21 12:00 01/10/21 01/11/21 01/11/21 22:59 06:59 14:59 Intake Total 50 / 650 400 / 1050 Output Total 200 / 200 Balance 50 / 650 200 / 850 Weight last 48 hrs Weight 57.062 kg Weight 57.323 kg Weight 65.771 kg Weight 65.771 kg Physical Exam Narrative: EXAM NARRATIVE: General: No acute distress, awake but oriented, aphasic (baseline as per son), dehydrated HEENT: PERRLA, pupils bilaterally equal and reactive Chest: Bronchial breath sounds, equal good air entry bilaterally CVS: S1-S2 regular, no murmurs, no tachycardia, no gallops, no rubs Abdomen: Soft, no organomegaly, bowel sounds present, central post OP well healed scar present. Neuro: No focal deficits, moving all limbs Urinary Catheter Management^: Garcia: Cath Placed During This Visit: yes Reason for Continuing Indwelling Catheter: Other Urinary Catheter Date of Insertion: 01/10/21 Urinary Catheter Time of Insertion: 02:35 Data : 01/11/21 00:56 01/11/21 09:30 Micro: Microbiology 01/11/21 12:28 Blood Culture - Preliminary Blood SPECIMEN COLLECTED 01/09/21 11:55 MRSA Culture - Final Nose 01/09/21 15:27 Urine Culture - Final Urine Catheterized Escherichia coli 01/09/21 17:30 Blood Culture - Preliminary Blood Gram positive chikis 01/09/21 17:36 Blood Culture - Preliminary Blood NEGATIVE TO DATE 01/09/21 15:27 Legionella Urinary Antigen - Final Urine Catheterized 01/09/21 15:27 Bacterial Antigens - Final Urine Kidney A&P Assessment and plan (1) Hypernatremia: Status: Acute (2) AMS (altered mental status): Status: Acute (3) Advanced dementia: Status: Acute (4) UTI (urinary tract infection): Status: Acute (5) Dehydration: Status: Acute (6) Severe protein-energy malnutrition: Status: Acute (7) Type 2 diabetes mellitus: Status: Acute Additional A&P Information AMS : Most likely not too different than baseline. Worsening of severe advance dementia 2/2 hypernatremia and UTI. UTI: Cultures so far negative, urine culture consistent with gram-negative rods. Urine Legionella bacterial antigen negative. Continue IV ceftriaxone. Urine culture results appreciated. E. coli. Sensitivities appreciated. We will plan to discharge on levofloxacin to finish a 7-day course. Blood culture positive: 1 out of 3 from day of admission positive for gram-positive rods. Most likely contaminant but given patient's mentation and advanced age we will have to rule out actual infection. Repeat blood cultures. Hypernatremia: Resolving but still elevated. 2/2 Dehydration from poor oral intake. FW deficit-down to 2.6 L Continue D5W at 125 cc/h, free water flushes through NG tube 250 every 4 hours BMP Q8h. T2DM: HbA1c 5.8. No more diabetes. Discussed in detail with son at bedside. Try to explain that she does not have diabetes anymore. Continue with insulin sliding scale at low-dose every 4 hourly while patient is on D5W. Lipid panel appreciated. Advance dementia: Not on any oral meds. On review of notes she should be on Namenda 10 mg twice daily, Cymbalta 60 mg daily. For now we will start her on Namenda 10 mg twice daily. Mentation at baseline. Speech eval today. NPO for now. Will advance diet as per eval. Iron panel consistent with mild iron deficiency anemia, random cortisol normal, TSH normal, vitamin B12, folate, lipase normal Code status: FC as per son. NPO Heparin Q12h Case management consult Attestations Medical Necessity Statement*: Requires further hospitalization for management of altered mental status secondary to E. coli UTI, severe but resolving hypernatremia in setting of poor oral intake secondary to advanced dementia Time Spent in Patient Care: Greater than 35 minutes (>than 50% of time spent in counselling and/or direct pt care on unit). Coding Level of Care Code Acute Whiskey Filterer for [facility] Fwd Diagnoses Hypernatremia E87.0 AMS (altered mental status) R41.82 Advanced dementia F03.90 UTI (urinary tract infection) N39.0 Dehydration E86.0 Severe protein-energy malnutrition E43 Type 2 diabetes mellitus E11.9
[2021-01-11 13:46] LABS: Glucose Point of Care 127 mg/dL (70-110)
--- NOTE | 2021-01-11 14:09 | PC.NURSE ---
PTS NG TUBE 250ML FREE WATER FLUSH WAS DONE AT APPROX. 0915 AND 1315
[2021-01-11 17:00] LABS: Glucose Point of Care 152 mg/dL (70-110)
[2021-01-11 17:39] LABS: Blood Urea Nitrogen 34 mg/dL (8-23); Calcium 8.4 mg/dL (8.5-10.5); Carbon Dioxide 28 mmol/L (22-29); Chloride 111 mmol/L (98-107); Glucose 182 mg/dL (65-115); Osmolality Calculated 316 mOsm/kg (285-295); Sodium 147 mmol/L (136-145)
[2021-01-11 17:44] LABS: Anion Gap 11.5 (5-19); Potassium 3.5 mmol/L (3.5-5.1)
[2021-01-11] MEDS: cefTRIAXone 1,000 MG in sodium chloride 0.9% (plus) 50 ML 100 MG IV (17:44)
[2021-01-11] MEDS: dextrose 5% 1,000 ML 125 ML IV (17:45)
[2021-01-11 20:51] LABS: Glucose Point of Care 166 mg/dL (70-110)
[2021-01-12] VITALS (8 sets, daily range): BP systolic 121–147; BP diastolic 65–91; PULSE 75–98; RESP 14–20; TEMP 36.4–37.4; O2SAT 93–98
[2021-01-12] MEDS: insulin lispro 100 unit/1 mL SUBCUT ×4 (00:07→17:13)
[2021-01-12 00:15] LABS: Glucose Point of Care 156 mg/dL (70-110)
[2021-01-12 01:37] LABS: Blood Urea Nitrogen 28 mg/dL (8-23); Calcium 8.3 mg/dL (8.5-10.5); Carbon Dioxide 25 mmol/L (22-29); Chloride 106 mmol/L (98-107); Glucose 209 mg/dL (65-115); Osmolality Calculated 302 mOsm/kg (285-295); Sodium 140 mmol/L (136-145)
[2021-01-12 01:38] LABS: Anion Gap 12.4 (5-19); Potassium 3.4 mmol/L (3.5-5.1)
[2021-01-12] MEDS: dextrose 5% 1,000 ML 125 ML IV (04:07)
[2021-01-12 05:37] LABS: Glucose Point of Care 198 mg/dL (70-110)
[2021-01-12] MEDS: famotidine 20 mg/2 mL INJ IVP ×2 (05:48→17:13)
--- NOTE | 2021-01-12 08:00 | PC.NURSE ---
NG tube secured and intact, no residual noted, gave 250mL free water flush per doctors orders without any resistance.
[2021-01-12] MEDS: memantine 5 mg tablet 10 MG PO ×2 (08:07→17:13)
[2021-01-12] MEDS: docusate sodium 100 mg Capsule PO ×2 (08:07→17:13)
[2021-01-12] MEDS: heparin 5,000 unit/mL INJ 1 mL 5000 UNIT SUBCUT ×2 (08:08→21:30)
--- NOTE | 2021-01-12 09:47 | PC.NURSE ---
During heart to heart rounding Dr. Rey notified this nurse to stop IV fluids, and change free water flush to [id number]. See orders for further details.
[2021-01-12 11:34] LABS: Blood Urea Nitrogen 19 mg/dL (8-23); Calcium 8.1 mg/dL (8.5-10.5); Carbon Dioxide 24 mmol/L (22-29); Chloride 105 mmol/L (98-107); Glucose 156 mg/dL (65-115); Osmolality Calculated 291 mOsm/kg (285-295); Sodium 138 mmol/L (136-145)
[2021-01-12 11:42] LABS: Glucose Point of Care 144 mg/dL (70-110)
--- NOTE | 2021-01-12 12:17 | P.PN_ITS ---
Subjective Subjective: Interval history: No acute events overnight. Patient has remained hemodynamically stable and afebrile. Sodium levels down to 138 today. Patient more awake but still very confused. Spoke with son at bedside. We tried to discuss the different etiologies of patient's confusion which is combination of severely advanced dementia, UTI and severe hypernatremia because of poor oral intake. We also discussed that hyponatremia most likely will happen again in setting of advanced dementia and poor oral intake. We also discussed that patient is at high risk of aspiration even with processed/pur?ed diet. Patient's son verbalized understanding but has very tangential thoughts during conversation though has been taking good care of his mother over 20 years with been suffering with advanced dementia along with in-home services state for now he would like to continue with her current diet and if she has any episodes of aspiration he would consider PEG tube but for now as she has not had any episodes of aspiration or pneumonia he would like to continue the same. He would like to take patient home as soon as possible. We discussed patient would need continued treatment for 24 more hours for IV antibiotics and monitoring fluid and sodium status. Vitals/I&O/Wt Last Vital Signs Temp 97.9 F 01/12/21 12:00 Pulse 76 01/12/21 12:00 Resp 18 01/12/21 12:00 BP 147/74 01/12/21 12:00 Pulse Ox 98 01/12/21 12:00 01/11/21 01/12/21 01/12/21 22:59 06:59 14:59 Intake Total 50 / 1050 1000 / 2050 985 / 985 Output Total 300 / 300 250 / 550 Balance -250 / 750 750 / 1500 985 / 985 Weight last 48 hrs Weight 67.614 kg Weight 57.062 kg Physical Exam Narrative: EXAM NARRATIVE: General: No acute distress, awake but oriented, aphasic (baseline as per son), dehydrated HEENT: PERRLA, pupils bilaterally equal and reactive Chest: Bronchial breath sounds, equal good air entry bilaterally CVS: S1-S2 regular, no murmurs, no tachycardia, no gallops, no rubs Abdomen: Soft, no organomegaly, bowel sounds present, central post OP well healed scar present. Neuro: No focal deficits, moving all limbs Urinary Catheter Management^: Garcia: Cath Placed During This Visit: yes Reason for Continuing Indwelling Catheter: Other Urinary Catheter Date of Insertion: 01/10/21 Urinary Catheter Time of Insertion: 02:35 Data : 01/11/21 00:56 01/12/21 10:51 Micro: Microbiology 01/09/21 17:30 Blood Culture - Preliminary Blood Bacillus sp not b. anthracis 01/11/21 13:19 Blood Culture - Preliminary Blood SPECIMEN COLLECTED 01/11/21 12:28 Blood Culture - Preliminary Blood SPECIMEN COLLECTED 01/09/21 11:55 MRSA Culture - Final Nose 01/09/21 15:27 Urine Culture - Final Urine Catheterized Escherichia coli A&P Assessment and plan (1) Hypernatremia: Status: Acute (2) AMS (altered mental status): Status: Acute (3) Advanced dementia: Status: Acute (4) UTI (urinary tract infection): Status: Acute (5) Dehydration: Status: Acute (6) Severe protein-energy malnutrition: Status: Acute (7) Type 2 diabetes mellitus: Status: Acute Additional A&P Information AMS : Most likely not too different than baseline. Worsening of severe advance dementia 2/2 hypernatremia and UTI. UTI: Cultures so far negative, urine culture consistent with gram-negative rods. Urine Legionella bacterial antigen negative. Continue IV ceftriaxone. Urine culture results appreciated. E. coli. Sensitivities appreciated. We will plan to discharge on levofloxacin to finish a 7-day course. Blood culture positive: 1 out of 3 from day of admission positive for bacillus not anthracic Most likely contaminant but given patient's mentation and advanced age we will have to rule out actual infection. Repeat blood cultures so far negative. Hypernatremia: Resolved. 2/2 Dehydration from poor oral intake. Stop free water flush. D5w @ 50 cc/hr BMP Q12h T2DM: HbA1c 5.8. No more diabetes. Discussed in detail with son at bedside. Try to explain that she does not have diabetes anymore. Continue with insulin sliding scale at low-dose every 4 hourly while patient is on D5W. Lipid panel appreciated. Advance dementia: Not on any oral meds. On review of notes she should be on Namenda 10 mg twice daily, Cymbalta 60 mg daily. For now we will start her on Namenda 10 mg twice daily. Mentation at baseline. Dysphagia stage 1 diet pureed, nectar thickened. Patient is at high risk of aspiration. Concerns discussed in detail with patient's son/primary caregiver/DPOA. For now would want to continue dysphagia 1 diet. Iron panel consistent with mild iron deficiency anemia, random cortisol normal, TSH normal, vitamin B12, folate, lipase normal Code status: FC as per son. Diet advance as per swallow evaluation. Heparin Q12h Dc planning: Plan to discharge in next 24 hrs if sodium levels remain stable on oral antibiotic Attestations Medical Necessity Statement*: Requires further hospitalization for management of altered mental status secondary to UTI, hypernatremia, sequelae of advanced dementia Time Spent in Patient Care: Greater than 35 minutes (>than 50% of time spent in counselling and/or direct pt care on unit) . Coding Level of Care Code Acute X Ray Operator for [facility]g Fwd Diagnoses Hypernatremia E87.0 AMS (altered mental status) R41.82 Advanced dementia F03.90 UTI (urinary tract infection) N39.0 Dehydration E86.0 Severe protein-energy malnutrition E43 Type 2 diabetes mellitus E11.9
--- NOTE | 2021-01-12 12:31 | PC.NURSE ---
Patient pulled out NG tube in her hand when this nurse entered the room, Dr. Rey notified, new orders received to keep NG out and restart IV fluids at 50mL/hr, see orders for further details.
--- NOTE | 2021-01-12 12:51 | PC.CHAP ---
Pastoral Care Encounter/Spiritual Assessment Type of Contact [] Declined entry level installation technician visit [] Patient/Family/Request visit [] Outpatient visit [xx] Follow-up visit [] Physician referral [] Code/Alert [] Routine visit [] Staff referral [] Actively dying [] Patient sleeping [] Family support [] [xx] Out of room [] Palliative care [] [] Receiving care in room [] Pre-surgical visit [] Trauma [] Long length of stay [] ICU visit [] Other: Relational/Emotional Strength [] Patient feels connected with others/family/visitors/staff [] Distress [] Loneliness/isolation [] Abandonment Spirituality of Patient [] Person of Izabel [] Attends Synagogue of their [place] [] Believes in Prayer [] Reads Bible or Pentecostalism materials [] There are Spiritual issues to be addressed Pilling Machine Operator Interventions [] Prayer [] Active listening [] Non-anxious presence [] Spiritual/emotional support [] Crisis/trauma care [] Spiritual counseling [] Bereavement support [] Provided bereavement packet [] Provided Bible/devotional materials [] Provided toy/stuffed animal, coloring book to patient or family member [] Provided Communion [] Anointing/[place] [] Salvation [] Completed spiritual assessment [] Other: Impact on Illness or Injury [] Angry [] Fearful [] Anxious [] Often cries [] Exhaustion [] Unable to work [] Unable to attend yarsanism [] Unable to walk/stand [] Unable to read [] Unable to drive [] Unable to eat/drink [] Unable to sleep [] Unable to be with family [] Patient intubated [] Other: Summary Follow up needed Time spent with patient 1 minute
[2021-01-12] MEDS: dextrose 5% 1,000 ML 50 ML IV (13:07)
--- NOTE | 2021-01-12 14:03 | PC.NURSE ---
Patients son assisted patient in high fowlers with feeding patient had occasional cough but tolerated okay.
--- NOTE | 2021-01-12 14:37 | PC.NUTR ---
Nutrition follow up: Pureed diet with nectar thick liquids in place--high aspiration risk noted. MD ordered Ensure supplement. Would suggest Glucerna instead. If unable to safely consume oral diet, and enteral nutrition consistent with goals of care, recommend Glucerna 1.2, starting at 10 ml/hr, increasing by 10 ml/hr q 8 hrs to goal rate of 60 ml/hr, with 100 ml H2O flush q 4 hrs, to provide 1728 kcal, 86 g protein, and 1759 ml H2O. See full RD assessment for further details.
--- NOTE | 2021-01-12 15:47 | PC.NURSE ---
This RN confirms care received and documentation by student nurse.
[2021-01-12 17:06] LABS: Glucose Point of Care 205 mg/dL (70-110)
[2021-01-12] MEDS: cefTRIAXone 1,000 MG in sodium chloride 0.9% (plus) 50 ML 100 MG IV (17:13)
[2021-01-12 20:29] LABS: Glucose Point of Care 137 mg/dL (70-110)
[2021-01-12] MEDS: sennosides 8.6 mg Tablet 17.2 MG PO (21:30)
[2021-01-12 23:55] LABS: Glucose Point of Care 171 mg/dL (70-110)
[2021-01-13] MEDS: insulin lispro 100 unit/1 mL SUBCUT ×3 (00:08→11:55)
[2021-01-13 04:00] VITALS: BP 127/73; PULSE 84; RESP 15; TEMP 37.4; O2SAT 96
[2021-01-13 06:08] LABS: Glucose Point of Care 157 mg/dL (70-110)
[2021-01-13] MEDS: famotidine 20 mg/2 mL INJ IVP (06:11)
--- NOTE | 2021-01-13 06:12 | PC.NURSE ---
ivp pepcid admin for primary nurse
[2021-01-13 08:00] VITALS: BP 109/61; PULSE 81; RESP 18; TEMP 37.2; O2SAT 91
[2021-01-13 08:11] LABS: Basophils % 0.1 %; Eosinophils # 0.1 10^3/uL (0.0-0.8); Eosinophils % 1.1 %; Hemoglobin 13.6 g/dL (11.5-15.3); Lymphocytes # 2.6 10^3/uL (0.8-4.8); Lymphocytes % 21.1 %; Mean Corpuscular HGB Conc 32.4 g/dL (30.0-36.0); Mean Corpuscular Volume 98.8 fl (81-99); Mean Platelet Volume 10.9 fL (7.4-10.4); Monocytes # 0.9 10^3/uL (0.2-0.9); Monocytes % 7.1 %; Neutrophils # 8.65 10^3/uL (1.8-7.7); Neutrophils % 70.1 %; Nucleated Red Blood Cells % 0 %; Platelet Count 243 10^3/cmm (130-400); Red Blood Count 4.25 10^6/uL (4.1-5.3); Red Cell Distribution Width 14.4 % (12.1-15.1); White Blood Count 12.3 10^3/uL (4.0-10.0)
[2021-01-13 08:48] LABS: Alanine Aminotransferase 59 U/L (0-33); Albumin Level 2.9 g/dL (3.5-5.2); Alkaline Phosphatase 63 IU/L (35-105); Anion Gap 12.9 (5-19); Aspartate Amino Transferase 45 U/L (0-32); Blood Urea Nitrogen 14 mg/dL (8-23); Calcium 8.2 mg/dL (8.5-10.5); Carbon Dioxide 25 mmol/L (22-29); Chloride 104 mmol/L (98-107); Globulin 3.1 g/dL (1.3-4.6); Glucose 148 mg/dL (65-115); Osmolality Calculated 291 mOsm/kg (285-295); Sodium 139 mmol/L (136-145); Total Bilirubin 0.7 mg/dL (0.15-1.2)
[2021-01-13] MEDS: dextrose 5% 1,000 ML 50 ML IV (08:48)
[2021-01-13 08:52] LABS: Potassium 2.9 mmol/L (3.5-5.1)
[2021-01-13] MEDS: memantine 5 mg tablet 10 MG PO (10:13)
[2021-01-13] MEDS: docusate sodium 100 mg Capsule PO (10:14)
[2021-01-13] MEDS: heparin 5,000 unit/mL INJ 1 mL 5000 UNIT SUBCUT (10:16)
[2021-01-13 11:07] LABS: Glucose Point of Care 160 mg/dL (70-110)
[2021-01-13 11:22] VITALS: BP 108/73; PULSE 75; RESP 16; TEMP 36.8; O2SAT 96
[2021-01-13] MEDS: potassium chloride ER 20 mEq Tablet 40 MEQ PO ×2 (11:43→12:28)
--- NOTE | 2021-01-13 12:05 | P.DS_ITS ---
Discharge Providers Date of Admission: 01/09/21 15:46 Date of Discharge: January 13, 2021 Attending Provider at Admission: Miky Rey MD Attending Provider at Discharge: Miky Rey MD Primary Care Provider: Mahesh Perera MD Diagnoses at Discharge Discharge Diagnosis (1) Hypernatremia: Status: Acute (2) AMS (altered mental status): Status: Acute (3) Advanced dementia: Status: Acute (4) UTI (urinary tract infection): Status: Acute (5) Dehydration: Status: Acute (6) Severe protein-energy malnutrition: Status: Acute (7) Type 2 diabetes mellitus: Status: Ruled-out Reason for Visit Reason for Visit: Weakness Hospital Course Hospital Course Joleen Orr is a 85 year old female with PMH of advanced dementia, PE, pulmonary fibrosis, T2DM brought in today from home by son because of worsening weakness. As per the son at baseline pt eats minced foods and is dependant on ADLs on son and IHS. But was usually ambulatory till few weeks ago since when she has been getting progressively weak with possible fall few days ago. In ER she was found to have WBC of 17.9, hb of 15.7, na of 166, cl of 128, CO2 of 31, UA concerning for UTI with various imaging as below. Patient was admitted to the hospital with severe hypernatremia from dehydration and poor oral intake at home along with possible UTI. She was started on broad- spectrum antibiotics. Blood cultures remain negative urine cultures came back positive for pansensitive E. coli. For hypernatremia she was started on D5W IV hydration. NGT was placed after confirming the goals with son. She responded well to the treatment and her sodium levels trended down with them being 137 on the day of discharge. Patient as per the son is back to her baseline mentation which is of being confused, aphasic and occasionally tracking. During hospitalization she remained hemodynamically stable and afebrile. Further blood work was done which showed her HbA1c of 5.8 and it was conveyed in detail to the patient's son who is her primary caregiver that she is not diabetic and given her advanced age and her advanced dementia we can be more liberal with carb intake. Swallow evaluation was done and it was deemed patient to be high risk for aspiration even on dysphagia 1 pur?ed thickened diet. Further goals of care discussions were done with son at bedside given her advanced age, severely advanced baseline dementia, baseline poor functional and mental capabilities and her being at a very high risk of aspiration on dysphagia 1 diet. Her son/primary caregiver for now wants to continue the same diet as before and if needed is okay with her getting chest compressions, mechanical ventilator and PEG tube. Patient is to continue her in-home services on discharge. Physical Exam Narrative: EXAM NARRATIVE: General: No acute distress, awake but oriented, aphasic (baseline as per son), dehydrated HEENT: PERRLA, pupils bilaterally equal and reactive Chest: Bronchial breath sounds, equal good air entry bilaterally CVS: S1-S2 regular, no murmurs, no tachycardia, no gallops, no rubs Abdomen: Soft, no organomegaly, bowel sounds present, central post OP well healed scar present. Neuro: No focal deficits, moving all limbs Urinary Catheter Management^: Garcia: Cath Placed During This Visit: yes, but has since been removed by the nurse Reason for Continuing Indwelling Catheter: Decision to DC Catheter Urinary Catheter Date of Insertion: 01/10/21 Urinary Catheter Time of Insertion: 02:35 Date Urinary Catheter Removed: 01/13/21 Time Urinary Catheter Discontinued: 11:48 Discharge Data Data Completed and Pending: Completed Studies During Hospitalization Category Date Time Status CT cervical spin wo con* [id number] Stat Cat Scan 01/09/21 16:[address] chest abd pel w con* Routine Cat Scan 01/09/21 19:[address] facial bones w o con* [id number] Urgen t Cat Scan 01/09/21 16:[address] head wo con* [id number] Stat Cat Scan 01/09/21 16:08 Completed XR chest 1V dash ble [id number] Routine Exams 01/10/21 12:56 Completed XR chest 1V dash ble [id number] Stat Exams 01/10/21 18:40 Completed XR chest 1V dash ble [id number] Stat Exams 01/10/21 22:19 Completed XR chest 1V dash ble [id number] Urgent Exams 01/09/21 12:53 Completed XR chest 1V dash ble [id number] Urgent Exams 01/11/21 00:13 [place] [id number] Routin e Ultrasound 01/10/21 19:14 Completed Pending at discharge Category Date Time Status Blood Culture Sta t Lab 01/09/21 17:36 Results Blood Culture Sta t Lab 01/11/21 13:19 Results Labs from last 24 hours 01/13/21 01/13/21 01/13/21 10:53 07:34 07:34 WBC 12.3 H RBC 4.25 Hgb 13.6 Hct 42.0 MCV 98.8 MCH 32.0 MCHC 32.4 RDW 14.4 Plt Count 243 MPV 10.9 H Neut % (Auto) 70.1 Lymph % (Auto) 21.1 [place] % (Auto) 7.1 Eos % (Auto) 1.1 Baso % (Auto) 0.1 Neut # (Auto) 8.65 H Lymph # (Auto) 2.6 [place] # (Auto) 0.9 Eos # (Auto) 0.1 Baso # (Auto) 0.0 Nucleated RBC % (a uto) 0 Nucleated RBCs # 0.0 Sodium 139 Potassium 2.9 L Chloride 104 Carbon Dioxide 25 Anion Gap 12.9 BUN 14 Creatinine 0.6 GFR Calculation Not Reportable Glucose 148 H POC Glucose 160 H Calculated Osmolal ity 291 Calcium 8.2 L Total Bilirubin 0.7 AST 45 H ALT 59 H Alkaline Phosphata se 63 Total Protein 6.0 L Albumin 2.9 L Globulin 3.1 01/13/21 01/12/21 01/12/21 05:49 23:46 20:12 WBC RBC Hgb Hct MCV MCH MCHC RDW Plt Count MPV Neut % (Auto) Lymph % (Auto) [place] % (Auto) Eos % (Auto) Baso % (Auto) Neut # (Auto) Lymph # (Auto) [place] # (Auto) Eos # (Auto) Baso # (Auto) Nucleated RBC % (a uto) Nucleated RBCs # Sodium Potassium Chloride Carbon Dioxide Anion Gap BUN Creatinine GFR Calculation Glucose POC Glucose 157 H 171 H 137 H Calculated Osmolal ity Calcium Total Bilirubin AST ALT Alkaline Phosphata se Total Protein Albumin Globulin 01/12/21 17:01 WBC RBC Hgb Hct MCV MCH MCHC RDW Plt Count MPV Neut % (Auto) Lymph % (Auto) [place] % (Auto) Eos % (Auto) Baso % (Auto) Neut # (Auto) Lymph # (Auto) [place] # (Auto) Eos # (Auto) Baso # (Auto) Nucleated RBC % (a uto) Nucleated RBCs # Sodium Potassium Chloride Carbon Dioxide Anion Gap BUN Creatinine GFR Calculation Glucose POC Glucose 205 H Calculated Osmolal ity Calcium Total Bilirubin AST ALT Alkaline Phosphata se Total Protein Albumin Globulin Addt'l Data from Hospital Stay: Laboratory Results WBC 12.3 10^3/uL (4.0 -10.0) H 01/13/21 07:34 RBC 4.25 10^6/uL (4.1 -5.3) 01/13/21 07:34 Hgb 13.6 g/dL (11.5-1 5.3) 01/13/21 07:34 Hct 42.0 % (37.0-47.0 ) 01/13/21 07:34 MCV 98.8 fl (81-99) 01/13/21 07:34 MCH 32.0 pg (28.0-34. 0) 01/13/21 07:34 MCHC 32.4 g/dL (30.0-3 6.0) 01/13/21 07:34 RDW 14.4 % (12.1-15.1 ) 01/13/21 07:34 Plt Count 243 10^3/cmm (130 -400) 01/13/21 07:34 MPV 10.9 fL (7.4-10.4 ) H 01/13/21 07:34 Neut % (Auto) 70.1 % 01/13/21 07:34 Lymph % (Auto) 21.1 % 01/13/21 07:34 [place] % (Auto) 7.1 % 01/13/21 07:34 Eos % (Auto) 1.1 % 01/13/21 07:34 Baso % (Auto) 0.1 % 01/13/21 07:34 Neut # (Auto) 8.65 10^3/uL (1.8 -7.7) H 01/13/21 07:34 Lymph # (Auto) 2.6 10^3/uL (0.8- 4.8) 01/13/21 07:34 [place] # (Auto) 0.9 10^3/uL (0.2- 0.9) 01/13/21 07:34 Eos # (Auto) 0.1 10^3/uL (0.0- 0.8) 01/13/21 07:34 Baso # (Auto) 0.0 10^3/uL (0.0- 0.1) 01/13/21 07:34 Nucleated RBC % (a uto) 0 % 01/13/21 07:34 Nucleated RBCs # 0.0 /100WBC 01/13/21 07:34 Sodium 139 mmol/L (136-1 45) 01/13/21 07:34 Potassium 2.9 mmol/L (3.5-5 .1) L 01/13/21 07:34 Chloride 104 mmol/L (98-10 7) 01/13/21 07:34 Carbon Dioxide 25 mmol/L (22-29) 01/13/21 07:34 Anion Gap 12.9 (5-19) 01/13/21 07:34 BUN 14 mg/dL (8-23) 01/13/21 07:34 Creatinine 0.6 mg/dL (0.5-0. 9) 01/13/21 07:34 GFR Calculation Not Reportable 01/13/21 07:34 Glucose 148 mg/dL (65-115 ) H 01/13/21 07:34 POC Glucose 160 mg/dL (70-110 ) H 01/13/21 10:53 Estimat Average Gl ucose 120 01/10/21 05:00 Hemoglobin A1c 5.8 % (4.0-6.0) 01/10/21 05:00 Calculated Osmolal ity 291 mOsm/kg (285- 295) 01/13/21 07:34 Calcium 8.2 mg/dL (8.5-10 .5) L 01/13/21 07:34 Phosphorus 3.8 mg/dL (2.5-4. 5) 01/10/21 07:29 Magnesium 2.5 mg/dL (1.7-2. 3) H 01/10/21 07:29 Iron 32 ug/dL (37-145) L 01/09/21 14:19 TIBC 190 mcg/dl 01/09/21 14:19 % Saturation 16.8 % (20-50) L 01/09/21 14:19 Unsat Iron Binding 158 ug/dL (112-34 7) 01/09/21 14:19 Total Bilirubin 0.7 mg/dL (0.15-1 .2) 01/13/21 07:34 AST 45 U/L (0-32) H 01/13/21 07:34 ALT 59 U/L (0-33) H 01/13/21 07:34 Alkaline Phosphata se 63 IU/L (35-105) 01/13/21 07:34 Troponin T Baselin e 40 ng/L (0-10) H 01/09/21 14:19 Troponin T 120 Min ashley 35.39 ng/L (0-10) H 01/09/21 16:35 Delta Troponin T -4.61 ABS# (0-10) L 01/09/21 16:35 Troponin T Hi Sens 6Hr 33.40 ng/L (0-10) H 01/09/21 20:47 Troponin T Hi Sens 6Hr Delta -6.60 ng/L (0-12) L 01/09/21 20:47 Total Protein 6.0 g/dL (6.6-8.7 ) L 01/13/21 07:34 Albumin 2.9 g/dL (3.5-5.2 ) L 01/13/21 07:34 Globulin 3.1 g/dL (1.3-4.6 ) 01/13/21 07:34 Triglycerides 185 mg/dL (0-150) H 01/10/21 07:29 Cholesterol 137 mg/dL (0-200) 01/10/21 07:29 LDL Cholesterol, C alc 69 mg/dL (50-129) 01/10/21 07:29 Total VLDL Cholest diana 37 mg/dL (0-30) H 01/10/21 07:29 HDL Cholesterol 31 mg/dL (60-100) L 01/10/21 07:29 Cholesterol/HDL Ra claudio 4.42 mg/dL (0.0-4 .40) H 01/10/21 07:29 Lipase 21 U/L (13-60) 01/09/21 14:19 Vitamin B12 595 pg/mL (232-12 45) 01/09/21 14:19 Folate > 20.0 ng/mL (4.8 -37.3) 01/09/21 14:19 Procalcitonin 0.29 ng/mL (0-0.5 ) 01/09/21 14:19 TSH 2.31 uIU/mL (0.27 -4.20) 01/09/21 14:19 TSH Cancelled 01/09/21 14:19 Random Cortisol 17.39 ug/dL (2.47 -19.5) 01/09/21 16:35 Urine Color Yellow (Yellow) 01/09/21 15:27 Urine Appearance Cloudy (CLEAR) 01/09/21 15:27 Urine pH 8 (5-7) H 01/09/21 15:27 Ur Specific Gravit y 1.010 (1.005-1.0 30) 01/09/21 15:27 Urine Protein Neg (Negative) 01/09/21 15:27 Urine Glucose (UA) Norm (Normal) 01/09/21 15:27 Urine Ketones Negative (Negati ve) 01/09/21 15:27 Urine Blood 3+ (Negative) H 01/09/21 15:27 Urine Nitrate Negative (Negati ve) 01/09/21 15:27 Urine Bilirubin Neg (Negative) 01/09/21 15:27 Prot Sulfosalicyli c Acd Positive (Negati ve) 01/09/21 15:27 Urine Urobilinogen Norm mg/dL (Negat phil) 01/09/21 15:27 Ur Leukocyte Lisa ase 1+ (Negative) H 01/09/21 15:27 Urine RBC 25-40 /hpf (0-2) H 01/09/21 15:27 Urine WBC >100 /hpf (0-5) H 01/09/21 15:27 Ur Squamous Epith Cells 0-4 /hpf (0-5) H 01/09/21 15:27 Amorphous Sediment Not Reportable 01/09/21 15:27 Urine Bacteria 4+ /hpf (NONE) H 01/09/21 15:27 Ur Random Sodium 108 mmol/L 01/09/21 15:27 Ur Random Potassiu m > 107 mmol/L 01/09/21 15:27 Ur Random Chloride 123 mmol/L 01/09/21 15:27 RPR Nonreactive (Non reactive) 01/09/21 14:[address] 01/09/21 16:08 IMPRESSION: There is no evidence for fracture or facet dislocation. Radiation Dose CTDIVOL = (mGy): DLP = 349.16 (mGy-cm) Face CT 01/09/21 16:08 IMPRESSION: There is a minimally displaced nasal fracture. Radiation Dose CTDIVOL = (mGy): DLP = 1462.41 (mGy-cm) Head CT 01/09/21 16:08 IMPRESSION: There are no acute concerning abnormalities. Radiation Dose CTDIVOL = (mGy): DLP = 1614.97 (mGy-cm) Chest/Abdomen/Pelvis CT 01/09/21 19:14 IMPRESSION: Findings are suggestive of mild bladder cystitis.Clinical correlation is advised. Radiation Dose CTDIVOL = (mGy): DLP = 1702.2~1702.2 (mGy-cm) Chest X-Ray 01/11/21 00:13 IMPRESSION: 1. Patchy left lung airspace opacities may reflect atelectasis versus infiltrate, similar to prior exam. 2. Enteric tube tip below the left diaphragm over the gastric bubble. 3. Right upper quadrant surgical clips. 4. Emphysematous changes. 5. Cardiomegaly. Radiation Dose CTDIVOL = (mGy): DLP = (mGy-cm) Microbiology 01/11/21 12:28 Blood Blood Culture - Preliminary Gram positive cocci 01/11/21 13:19 Blood Blood Culture - Preliminary NEGATIVE TO DATE 01/09/21 17:30 Blood Blood Culture - Preliminary Bacillus sp not b. anthracis 01/09/21 11:55 Nose MRSA Culture - Final 01/09/21 15:27 Urine Catheterized Urine Culture - Final Escherichia coli 01/09/21 17:36 Blood Blood Culture - Preliminary NEGATIVE TO DATE 01/09/21 15:27 Urine Catheterized Legionella Urinary Antigen - Final 01/09/21 15:27 Urine Kidney Bacterial Antigens - Final Vitals: Last Vital Signs Temp 98.2 F 01/13/21 11:22 Pulse 75 01/13/21 11:22 Resp 16 01/13/21 11:22 BP 108/73 01/13/21 11:22 Pulse Ox 96 01/13/21 11:22 Discharge Plan Discharge Patient Disposition: Home Health Service Condition: Stable Prescriptions: New memantine 5 mg Tablet 10 mg PO BID 30 Days Qty: 120 RF: 0 levofloxacin 250 mg/10 mL solution 500 mg PO DAILY 3 Days Qty: 60 RF: 0 Continued albuterol sulfate 2.5 mg /3 mL (0.083 %) solution for nebulization 2.5 mg inhalation Q4H PRN (Reason: Shortness Of Breath) RF: 0 acetaminophen [Tylenol Ex Str Rapid Release] 500 mg Tablet 500 mg PO BID RF: 0 magnesium hydroxide [Milk of Magnesia] 400 mg/5 mL Suspension See Rx Instructions .ROUTE .COMPLEX RF: 0 diphenhydramine HCl [Allergy Relief(diphenhydramin)] 25 mg Tablet 25 mg PO BID RF: 0 montelukast 10 mg tablet 10 mg PO QAM RF: 0 multivitamin Tablet 1 tab PO QAM RF: 0 Discontinued metformin 500 mg tablet 500 mg PO QAM RF: 0 Discharge Orders: Discharge Order (Routine); Ordered 01/13/21 Ordered By: Miky Rey Referrals: Mahesh Perera MD [Primary Care Provider] - 4-7 days Discharge Diet: As Directed Patient Instructions: Levofloxacin (By mouth), Memantine (By mouth), Opioid Safety Activity Restrictions/Additional Instructions: Dysphagia 1 pur?ed nectar thickened diet. Levofloxacin for 3 days for UTI. Please make sure to maintain oral hydration up to 1500 cc a day. Does not need carb consistent diet anymore.. Discharge Attestations Time Spent in Discharge Care*: greater than 30 min Specific Discharge Activities: educating and/or supporting family/caregiver, discussing with medical case manager/social workers/dc planners, documenting/other paperwork and evaluating patient/reviewing data Status at Discharge: Cognitive status at discharge: severely impaired cognition , Behavioral status at discharge: cooperative , Functional status at discharge: bed bound Overall status at discharge: patient is back to baseline Quality Metrics Clinical Quality Measures During this hospital stay, did patient experience: None Coding Level of Care Code Acute [facility] DC note Diagnoses Hypernatremia E87.0 AMS (altered mental status) R41.82 Advanced dementia F03.90 UTI (urinary tract infection) N39.0 Dehydration E86.0 Severe protein-energy malnutrition E43 Type 2 diabetes mellitus E11.9
--- NOTE | 2021-01-13 14:47 | PC.NURSE ---
Discharge Note Patient discharged to personal home via private vehicle accompanied by her son. Discharge instructions reviewed with patient's son. Mobile pharmacy medications and/or prescriptions provided to ELIAZ[facility] Lovett. Belongings/home medications returned.
[2021-01-13 14:48] VITALS: BP 108/73; PULSE 75; RESP 16; TEMP 36.8; O2SAT 96
--- NOTE | 2021-01-15 09:50 | PC.SOCIAL ---
Called Pharmacy regarding two notifications on Memantine indicating can not dispense 4 tabs 2-5mg tabs twice daily. Spoke with Mahesh pharmacist and asked that the script be ran as 1-10mg tablet Twice a day in order to get insurance to approve.
== END 2021-01-13 14:10 | disposition home health service (06) | DRG 640 ==
LOC: ER 16:37 → MEDSURG 17:58
PROVIDERS: Emergency Medicine; Admitting Provider Student in an Organized Health Care Education/Training Program; Emergency Provider Family Medicine; PCP Family Medicine; Visit Provider Student in an Organized Health Care Education/Training Program
DX: E87.0 Hyperosmolality and hypernatremia (principal); E43 Unspecified severe protein-calorie malnutrition; N39.0 Urinary tract infection, site not specified; B96.20 Unspecified Escherichia coli [E. coli] as the cause of diseases classified elsewhere; F03.90 Unspecified dementia, unspecified severity, without behavioral disturbance, psychotic disturbance, mood disturbance, and anxiety; E86.0 Dehydration; D50.9 Iron deficiency anemia, unspecified; E11.9 Type 2 diabetes mellitus without complications; J84.10 Pulmonary fibrosis, unspecified; Z68.23 Body mass index [BMI] 23.0-23.9, adult; Z86.711 Personal history of pulmonary embolism; Z79.84 Long term (current) use of oral hypoglycemic drugs; Z85.3 Personal history of malignant neoplasm of breast; Z86.31 Personal history of diabetic foot ulcer; Z90.49 Acquired absence of other specified parts of digestive tract
CPT/HCPCS: 36415; 36416; 51702; 70450; 70486; 71045; 71260; 72125; 74177; 80048; 80053; 80061; 81001; 82436; 82533; 82607; 82746; 82962; 83036; 83540; 83550; 83690; 83735; 84100; 84133; 84145; 84300; 84443; 84484; 85025; 86403; 86592; 87040; 87077; 87086; 87186; 87205; 87449; 87641; 92526; 92610; 93005; 93970; 94664; 96372; 97161; 99285; J0696; J1644; J1815; J3490; Q9967

== ENCOUNTER 2021-01-25 13:10 | Inpatient (IN) | payer MEDICARE, MEDICAID, SELFPAY ==
[2021-01-25] VITALS (11 sets, daily range): BP systolic 98–152; BP diastolic 52–83; PULSE 82–102; RESP 13–22; TEMP 36.5–36.9; O2SAT 91–98
--- NOTE | 2021-01-25 13:52 | CT_ITS ---
WS: [id number] CT ABDOMEN PELVIS TECHNIQUE: Contrast-enhanced CT of the abdomen and pelvis with coronal and sagittal reformatted image s. CLINICAL INFORMATION: abd pain COMPARISON: CT January 09, 2021 and 5 ,016 DLP: 1626.[address] scans at [facility] use at least one of these dose optimization techniques: automated e xposure control; mA and/or kV adjustment per patient size (includes targeted exams where dose is matc hed to clinical indication); or iterative reconstruction. FINDINGS: Poor solid organ contrast opacification due to poor contrast bolus Liver appears normal. Cholecystectomy. Interstitial thickening and fibrosis in the lung bases. Cardio megaly. Pancreas appears normal with fatty atrophy. Tiny left adrenal nodule likely adenoma. Right ad renal gland is normal. Mild atrophy left kidney. No hydronephrosis in either kidney. Normal caliber abdominal aorta. Mild aortic calcification. No aneurysm. Evidence of prior bowel resec tion in the right lower quadrant with anastomosis at the cecum. Mild fluid distended loops of small b owel with a few air-fluid levels in the midabdomen. Air-fluid levels in the transverse colon. No evid ence of high-grade obstruction. Findings likely due to developing small bowel obstruction versus ileu s. Mild fluid distention of the cecum. No periaortic or pelvic lymphadenopathy. No inguinal lymphadenopathy. Lumbar scoliosis. CT/CT abdomen pelvis w con* [id number] IMPRESSION: 1. Evidence of prior bowel resection in the right lower quadrant at the cecum 2. Mild distention of fluid-filled small bowel loops with air-fluid levels in the midabdomen. Air-fluid levels in the transverse colon. Findings likely due t o developing partial small bowel obstruction versus ileus. Persistent air withi n the rectum. 3. Chronic appearing interstitial thickening and fibrosis in the lung bases. 4. Prior cholecystectomy. 5. No other acute findings.
--- NOTE | 2021-01-25 13:55 | W.ED.ABDPA2 ---
HPI - Abdominal Pain General: Chief Complaint: Abdominal Pain Stated Complaint: thinks she is impacted Time Seen by Provider: 01/25/21 13:36 History of Present Illness: HPI narrative: 85-year-old female with a history of dementia and previous colon resection presents emergency room today with complaint of bright red bleeding per rectum.Patient is a history of diabetes mellitus as well. Recently hospitalized for hyponatremia. Nonresponsive today other than turning her head towards her voice. She does not follow any commands does not verbalize any sponsors. Family is concerned she may be impacted and states she appears to be bloated. Associated Symptoms: Denies anorexia, belching, dyspepsia, hematochezia, loose stools, melena and poor appetite Review of Systems General: Reports: ROS unobtainable due to medical condition and ROS unobtainable due to mental status GI: Denies: belching, hematochezia or melena PFSH ED PFSH: Medical History (Updated 02/01/21 @ 09:26 by Armando Sheth DO) Acute metabolic encephalopathy Advanced dementia AMS (altered mental status) Breast cancer Cecal volvulus Congestive heart failure Dehydration Diabetic foot ulcer Hematochezia Hypernatremia Hypernatremia Ileus Pulmonary embolism Pulmonary fibrosis determined by high resolution computed tomography Rectal bleed SBO (small bowel obstruction) Severe protein-energy malnutrition Type 2 diabetes mellitus Surgical History H/O hemicolectomy History of cholecystectomy Physical Exam Const: COMMON NORMALS: no acute distress GENERAL APPEARANCE: cooperative and comfortable HENMT: COMMON NORMALS: normocephalic and atraumatic HEAD & SCALP: normocephalic and atraumatic Eye: COMMON NORMALS: Equal, round and reactive pupils present, conjunctivae normal and no scleral icterus CONJUNCTIVA: Yes conjunctivae normal PUPIL: Yes Equal, round and reactive pupils present Neck/C-Spine: COMMON NORMALS: full ROM, no lymphadenopathy, supple and no JVD Lymph: LYMPHATIC: no lymphadenopathy noted and no lymphedema noted Resp: COMMON NORMALS: normal respiratory effort, No retractions, No use of accessory muscles and clear to auscultation bilaterally AUSCULTATION: clear to auscultation bilaterally Cardio: COMMON NORMALS: no JVD, regular rate, regular rhythm and No murmurs present (Cardio) RATE: regular rate RHYTHM: regular rhythm GI: COMMON NORMALS: No hepatosplenomegaly present AUSCULTATION: Yes Hypoactive bowel sounds present PALPATION: Yes Tenderness to palpation present (GI), No Guarding due to palpation present (GI) and Yes No hepatosplenomegaly present Extremity: COMMON NORMALS: normal to inspection, capillary refill normal, no clubbing, cyanosis or edema, no calf tenderness and no pedal edema Skin: COMMON NORMALS: no rashes or lesions noted GENERAL SKIN EXAM: no rashes or lesions noted Course Vital Signs: Vital signs: Vital Signs Temperature 98.2 F 01/28/21 07:22 Pulse Rate 81 01/28/21 11:54 Respiratory Rate 18 01/28/21 11:54 Blood Pressure 150/74 01/28/21 07:22 Pulse Oximetry 98 01/28/21 11:54 MDM - Abdominal Pain MDM Narrative: Medical decision making narrative: Patient has dementia soon acute metabolic encephalopathy with rectal bleeding and small bowel obstruction. Discussed with hospitalist orders written Lab Data: Labs: Lab Results 01/25/21 01/25/21 01/25/21 15:00 15:00 15:50 WBC 15.2 10^3/uL H 10 ^3/uL (4.0-10.0) RBC 3.92 10^6/uL L 10 ^6/uL (4.1-5.3) Hgb 12.9 g/dL g/dL (11.5-15.3) Hct 45.0 % % (37.0-47.0) MCV 114.8 fl H fl (81-99) MCH 32.9 pg pg (28.0-34.0) MCHC 28.7 g/dL L g/dL (30.0-36.0) RDW 18.0 % H % (12.1-15.1) Plt Count 289 10^3/cmm 10^3 /cmm (130-400) MPV 9.7 fL fL (7.4-10.4) Neut % (Auto) 66.4 % % Lymph % (Auto) 23.9 % % [place] % (Auto) 7.0 % % Eos % (Auto) 2.1 % % Baso % (Auto) 0.3 % % Neut # (Auto) 10.06 10^3/uL H 1 0^3/uL (1.8-7.7) Lymph # (Auto) 3.6 10^3/uL 10^3/ uL (0.8-4.8) [place] # (Auto) 1.1 10^3/uL H 10^ 3/uL (0.2-0.9) Eos # (Auto) 0.3 10^3/uL 10^3/ uL (0.0-0.8) Baso # (Auto) 0.1 10^3/uL 10^3/ uL (0.0-0.1) Nucleated RBC % (a uto) 0 % % Nucleated RBCs # 0.0 /100WBC /100W BC PT 14.10 SECONDS SEC ONDS (12.1-14.9) INR 1.06 (0.8-1.2) APTT 23.7 SECONDS L SE CONDS (23.9-36.7) Sodium 148 mmol/L H mmol /L (136-145) Potassium 4.1 mmol/L mmol/L (3.5-5.1) Chloride 116 mmol/L H mmol /L (98-107) Carbon Dioxide 21 mmol/L L mmol/ L (22-29) Anion Gap 15.1 (5-19) BUN 28 mg/dL H mg/dL (8-23) Creatinine 0.6 mg/dL mg/dL (0.5-0.9) GFR Calculation Not Reportable Glucose 138 mg/dL H mg/dL (65-115) Calculated Osmolal ity 314 mOsm/kg H mOs m/kg (285-295) Calcium 8.6 mg/dL mg/dL (8.5-10.5) Total Bilirubin 0.4 mg/dL mg/dL (0.15-1.2) AST 32 U/L U/L (0-32) ALT 41 U/L H U/L (0-33) Alkaline Phosphata se 79 IU/L IU/L (35-105) Total Protein 5.9 g/dL L g/dL (6.6-8.7) Albumin 2.8 g/dL L g/dL (3.5-5.2) Globulin 3.1 g/dL g/dL (1.3-4.6) Urine Color Urine Appearance Urine pH Ur Specific Gravit y Urine Protein Urine Glucose (UA) Urine Ketones Urine Blood Urine Nitrate Urine Bilirubin Prot Sulfosalicyli c Acd Urine Urobilinogen Ur Leukocyte Lisa ase 01/25/21 17:23 WBC RBC Hgb Hct MCV MCH MCHC RDW Plt Count MPV Neut % (Auto) Lymph % (Auto) [place] % (Auto) Eos % (Auto) Baso % (Auto) Neut # (Auto) Lymph # (Auto) [place] # (Auto) Eos # (Auto) Baso # (Auto) Nucleated RBC % (a uto) Nucleated RBCs # PT INR APTT Sodium Potassium Chloride Carbon Dioxide Anion Gap BUN Creatinine GFR Calculation Glucose Calculated Osmolal ity Calcium Total Bilirubin AST ALT Alkaline Phosphata se Total Protein Albumin Globulin Urine Color Yellow (Yellow) Urine Appearance Hazy A (CLEAR) Urine pH 9 H (5-7) Ur Specific Gravit y 1.015 (1.005-1.030) Urine Protein Neg (Negative) Urine Glucose (UA) Norm (Normal) Urine Ketones Negative (Negative) Urine Blood Neg (Negative) Urine Nitrate Negative (Negative) Urine Bilirubin Neg (Negative) Prot Sulfosalicyli c Acd Negative (Negative) Urine Urobilinogen Norm mg/dL mg/dL (Negative) Ur Leukocyte Lisa ase Negative (Negative) Discharge Plan Discharge Patient Disposition: Admitted As Inpatient Admit Provider: Mk Santa Clinical Impression: Small bowel obstruction, RB (rectal bleeding), Acute hypernatremia, Metabolic encephalopathy Condition: Stable Discharge Diet: Soft Mechanical Discharge Activity: Limit activity as instructed Coding Level of Care Code ED Block Sawyer for Herig Fwd Exam Comprehensive
[2021-01-25] MEDS: iohexol 350 mg/mL 100 mL Btl IV (14:23)
[2021-01-25 15:18] LABS: Basophils # 0.1 10^3/uL (0.0-0.1); Basophils % 0.3 %; Eosinophils # 0.3 10^3/uL (0.0-0.8); Eosinophils % 2.1 %; Hemoglobin 12.9 g/dL (11.5-15.3); Lymphocytes # 3.6 10^3/uL (0.8-4.8); Lymphocytes % 23.9 %; Mean Corpuscular HGB Conc 28.7 g/dL (30.0-36.0); Mean Corpuscular Hemoglobin 32.9 pg (28.0-34.0); Mean Corpuscular Volume 114.8 fl (81-99); Mean Platelet Volume 9.7 fL (7.4-10.4); Monocytes # 1.1 10^3/uL (0.2-0.9); Neutrophils # 10.06 10^3/uL (1.8-7.7); Neutrophils % 66.4 %; Nucleated Red Blood Cells % 0 %; Platelet Count 289 10^3/cmm (130-400); Red Blood Count 3.92 10^6/uL (4.1-5.3); White Blood Count 15.2 10^3/uL (4.0-10.0)
[2021-01-25 16:09] LABS: INR 1.06 (0.8-1.2)
[2021-01-25 16:11] LABS: Partial Thromboplastin Time 23.7 SECONDS (23.9-36.7)
[2021-01-25 16:12] LABS: Alanine Aminotransferase 41 U/L (0-33); Albumin Level 2.8 g/dL (3.5-5.2); Alkaline Phosphatase 79 IU/L (35-105); Blood Urea Nitrogen 28 mg/dL (8-23); Carbon Dioxide 21 mmol/L (22-29); Chloride 116 mmol/L (98-107); Globulin 3.1 g/dL (1.3-4.6); Glucose 138 mg/dL (65-115); Osmolality Calculated 314 mOsm/kg (285-295); Sodium 148 mmol/L (136-145); Total Bilirubin 0.4 mg/dL (0.15-1.2); Total Protein 5.9 g/dL (6.6-8.7)
[2021-01-25 16:26] LABS: Anion Gap 15.1 (5-19); Aspartate Amino Transferase 32 U/L (0-32); Potassium 4.1 mmol/L (3.5-5.1)
[2021-01-25 16:30] LABS: Calcium 8.6 mg/dL (8.5-10.5)
[2021-01-25 17:37] LABS: Add Urine Microscopic? NO; Charge for UA Resulting for Rev
[2021-01-25 17:45] LABS: Urine Appearance Hazy (CLEAR); Urine Color Yellow (Yellow)
[2021-01-25 17:46] LABS: Bilirubin Urine Neg (Negative); Blood Urine Neg (Negative); Glucose Urine UA Norm (Normal); Ketones Urine Negative (Negative); Leukocyte Esterase Urine Negative (Negative); Nitrate Urine Negative (Negative); Protein Urine Neg (Negative); Specific Gravity, Urine 1.015 (1.005-1.030); Sulfosalicylic Acid Urine Negative (Negative); Urobilinogen Urine Norm (Negative); pH Urine 9 (5-7)
[2021-01-25] MEDS: ciprofloxacin 400 MG/200 ML PREMIX 200 MG IV (18:16)
--- NOTE | 2021-01-25 20:15 | P.HP_ITS ---
Providers/Chief Complaint Admitting Physician: Mk Santa MD Primary Care Provider: Mahesh Perera MD Chief Complaint: thinks she is impacted History of Present Illness Joleen Orr is a 85 year old female with past medical history of advanced dementia, prior colon resection, diabetes, recent hospitalization for dehydration, chronic constipation who is brought by her family to emergency room due to decreased mental state and rectal blood. According to the family there was blood in the diapers with stool. It was red bright blood without clots. No other significant changes. No nausea or vomiting. CT of the abdomen and pelvis revealed possible small bowel obstruction or ileus. The patient also has evidence of significant dehydration. The family has currently left. The patient is unable to provide history. Information is mostly collected from Dr. Santa spoke with Dr. Ovalle earlier, as well as nursing staff. Review of Systems General: Reports: ROS unobtainable due to mental status Medications/Allergies Home Medications Medication Instructions Recorded Confirmed Last Taken Type acetaminophen 500 mg PO BID 01/09/21 01/09/21 01/09/21 History albuterol sulfate 2.5 mg INHALATION Q4H PRN 01/09/21 01/09/21 Unknown History diphenhydramine HCl [Allergy 25 mg PO BID 01/09/21 01/09/21 01/09/21 History Relief(diphenhydramin)] magnesium hydroxide [Milk of See Rx Instructions .ROUTE .COMPLEX 01/09/21 01/09/21 01/09/21 History Magnesia] montelukast 10 mg PO QAM 01/09/21 01/09/21 01/09/21 History multivitamin 1 tab PO QAM 01/09/21 01/09/21 01/09/21 History memantine 10 mg PO BID 30 Days #120 tab 01/13/21 Unknown Rx Allergies Allergy/AdvReac Type Severity Reaction Status Date / Time No Known Allergies Allergy Unverified 01/09/21 15:37 PFSH Acute PFSH: Medical History Advanced dementia AMS (altered mental status) Breast cancer Cecal volvulus Congestive heart failure Dehydration Diabetic foot ulcer Hypernatremia Pulmonary embolism Pulmonary fibrosis determined by high resolution computed tomography Severe protein-energy malnutrition Type 2 diabetes mellitus Surgical History H/O hemicolectomy History of cholecystectomy Vitals/I&O/Wt Last Vital Signs Temp 97.7 F 01/25/21 13:30 Pulse 82 01/25/21 16:27 Resp 16 01/25/21 19:00 BP 140/80 01/25/21 19:00 Pulse Ox 95 01/25/21 19:00 Weight last 48 hrs Weight 65.771 kg Physical Exam Narrative: EXAM NARRATIVE: The patient is awake but confused and unresponsive. A verbal. No acute distress. Skin is warm and dry. Eyes PERRL, extraocular muscles are intact, normal sclera. Dry tongue and mucous membranes Neck supple. No JVD Lungs are clear to auscultation bilaterally. No wheeze or crackles Heart S1, S2, regular Abdomen is distended, soft, nontender, bowel sounds are weak. Extremities trace edema. No cyanosis no calf tenderness bilaterally Moves all extremities. No facial asymmetry. Data : 01/25/21 15:00 01/25/21 15:00 A&P Assessment and plan (1) Ileus: Bowel rest, IV fluids. Will request surgical evaluation in the morning. We will monitor and replace electrolytes as needed. Status: Acute (2) SBO (small bowel obstruction): Status: Acute (3) Rectal bleed: Will monitor H&H. PPI IV. Will transfuse if necessary. Currently however she is hemodynamically stable. Status: Acute (4) Dehydration: Will manage with IV fluids. Will monitor electrolytes and kidney function Status: Acute (5) Hypernatremia: Status: Acute (6) Acute metabolic encephalopathy: Status: Acute Additional A&P Information 85-year-old female with past medical history of advanced dementia, colon resection, previous episodes of dehydration and hypernatremia who is brought by the family to emergency room due to reported rectal blood and constipation. The patient also has evidence of severe dehydration, hypernatremia, metabolic acidosis. Nursing staff is currently trying to reach the family to verify the CODE STATUS. DVT prophylaxis. Teds and SCDs. No anticoagulation due to suspected rectal bleeding. Attestations Medical Necessity Statement*: I expect that the patient will spend more than 2 midnights in the hospital due to problems listed above requiring aggressive treatments and monitoring. Coding Level of Care Code Acute Transportation Refrigeration Technician for Chg Fwd Diagnoses Ileus K56.7 SBO (small bowel obstruction) K56.609 Rectal bleed K62.5 Dehydration E86.0 Hypernatremia E87.0 Acute metabolic encephalopathy G93.41
[2021-01-25] MEDS: metroNIDAZOLE IV 500 MG/100 ML PREMIX 100 MG IV (20:23)
[2021-01-25] MEDS: D5-NS 0.45% + KCL 20 mEq 20 MEQ/1,000 ML BAG 125 MEQ IV (21:41)
[2021-01-25] MEDS: pantoprazole 40 mg SDV IVP (21:41)
--- NOTE | 2021-01-25 22:45 | PC.ADMIT ---
[address] Admission Note: The patient,Joleen Orr,85 y/o, was given written information regarding hospital policies, unit procedures and contact persons. Patient's smoking status: . Vital Signs - 8 hr 01/25/21 16:27 01/25/21 19:00 01/25/21 20:33 Temperature Pulse Rate 82 82 Respiratory Rate 16 16 20 H Blood Pressure 152/83 140/80 140/70 Pulse Oximetry 94 95 98 01/25/21 20:50 Temperature 98.4 F Pulse Rate 87 Respiratory Rate 20 H Blood Pressure 98/81 Pulse Oximetry 94 Admit Note Patient admitted to ROOM ICU-2 from ED via [STRETCHER.]. Covering service notified. Patient presents with [early Bowel Obstruction/Constipation]. Orders reviewed & will continue to monitor. Patient and/or quality audit representative unable to orient to environment, equipment, and informed of the following as found in the admission booklet: patient rights & responsibilities, visitor policy, hand and respiratory hygiene practice. . Patient non verbal and does not respond to verbal stimuli. Unable to contact family;unable to complete admission assessment. Will pass on to day shift to try again in the morning.
[2021-01-26] VITALS (141 sets, daily range): BP systolic 72–137; BP diastolic 47–81; PULSE 57–95; RESP 14–29; TEMP 36.6; O2SAT 48–100
[2021-01-26 00:40] LABS: Hematocrit 40.7 % (37.0-47.0); Hemoglobin 12.6 g/dL (11.5-15.3)
[2021-01-26 05:01] LABS: Basophils # 0.1 10^3/uL (0.0-0.1); Basophils % 0.3 %; Eosinophils # 0.4 10^3/uL (0.0-0.8); Eosinophils % 2.8 %; Hematocrit 44.7 % (37.0-47.0); Hemoglobin 13.3 g/dL (11.5-15.3); Lymphocytes # 3.2 10^3/uL (0.8-4.8); Lymphocytes % 21.6 %; Mean Corpuscular HGB Conc 29.8 g/dL (30.0-36.0); Mean Corpuscular Volume 107.5 fl (81-99); Monocytes # 0.8 10^3/uL (0.2-0.9); Monocytes % 5.6 %; Neutrophils # 10.19 10^3/uL (1.8-7.7); Neutrophils % 69.3 %; Nucleated Red Blood Cells % 0 %; Platelet Count 255 10^3/cmm (130-400); Red Blood Count 4.16 10^6/uL (4.1-5.3); Red Cell Distribution Width 17.3 % (12.1-15.1); White Blood Count 14.7 10^3/uL (4.0-10.0)
[2021-01-26 05:37] LABS: Alanine Aminotransferase 33 U/L (0-33); Albumin Level 3.2 g/dL (3.5-5.2); Alkaline Phosphatase 80 IU/L (35-105); Anion Gap 13.1 (5-19); Aspartate Amino Transferase 19 U/L (0-32); Blood Urea Nitrogen 22 mg/dL (8-23); Calcium 8.3 mg/dL (8.5-10.5); Carbon Dioxide 28 mmol/L (22-29); Chloride 113 mmol/L (98-107); Globulin 2.8 g/dL (1.3-4.6); Glucose 133 mg/dL (65-115); Osmolality Calculated 315 mOsm/kg (285-295); Potassium 4.1 mmol/L (3.5-5.1); Sodium 150 mmol/L (136-145); Thyroid Stimulating Hormone 6.16 uIU/mL (0.27-4.20)
[2021-01-26] MEDS: D5-NS 0.45% + KCL 20 mEq 20 MEQ/1,000 ML BAG 125 MEQ IV (06:13)
--- NOTE | 2021-01-26 08:35 | PC.NURSE ---
0715 recd. awake. est. eye contact. non-verbal by history. tracts.
--- NOTE | 2021-01-26 08:36 | PC.PHAR ---
MEDICATIONS ENTERED ARE FROM THE PTS MED LIST FROM ANNA MARIE AND PTS SON CARLY-METFORMIN NOT ON PTS MED LIST FROM ANNA MARIE SON CARLY STATES FOR THE LAST WEEK HE HAS BEEN GIVING THE PT 500MG BID EXT MED HISTORY SHOWS LAST FILLED ON 03/16/2020 90D/S- DISCHARGED ON 01/13/21 SHOWS METFORMIN DCED 01/13/21-
--- NOTE | 2021-01-26 09:58 | PC.CHAP ---
Pastoral Care Encounter/Spiritual Assessment Type of Contact [] Declined junior qa analyst visit [] Patient/Family/Request visit [] Outpatient visit [] Follow-up visit [] Physician referral [] Code/Alert [x] Routine visit [] Staff referral [] Actively dying [x] Patient sleeping [] Family support [] [] Out of room [] Palliative care [] [] Receiving care in room [] Pre-surgical visit [] Trauma [] Long length of stay [x] ICU visit [] Other: Relational/Emotional Strength [] Patient feels connected with others/family/visitors/staff [] Distress [] Loneliness/isolation [] Abandonment Spirituality of Patient [] Person of Izabel [] Attends Zoroastrian of their Izabel [] Believes in Prayer [] Reads Bible or Confucianism materials [] There are Spiritual issues to be addressed [place]paca Farmer Interventions [x] Prayer [] Active listening [] Non-anxious presence [] Spiritual/emotional support [] Crisis/trauma care [] Spiritual counseling [] Bereavement support [] Provided bereavement packet [] Provided Bible/devotional materials [] Provided toy/stuffed animal, coloring book to patient or family member [] Provided Communion [] Anointing/[place] [] Salvation [x] Completed spiritual assessment [] Other: Impact on Illness or Injury [] Angry [] Fearful [] Anxious [] Often cries [] Exhaustion [] Unable to work [] Unable to attend congregation [] Unable to walk/stand [] Unable to read [] Unable to drive [] Unable to eat/drink [] Unable to sleep [] Unable to be with family [] Patient intubated [] Other: Summary Time spent with patient
[2021-01-26 12:51] LABS: Hematocrit 40.1 % (37.0-47.0); Hemoglobin 12.4 g/dL (11.5-15.3)
[2021-01-26] MEDS: dextrose 5%-sod chloride 0.45% 1,000 ML 100 ML IV ×2 (13:29→23:03)
--- NOTE | 2021-01-26 15:32 | PC.NURSE ---
magdielantoni lezama, son called to check on his mom, he will discuss with brothers again her code status. he is dpoa but feels he needs to talk with them again, but in past she was d.n. r.
--- NOTE | 2021-01-26 15:52 | PM.CONSULT ---
Providers/Reason For Consult Consulting Physician/Specialty*: General Surgery Dr. Childers Reason for Consult*: SBO, hematochezia Attending Physician: Jayjay Arnold MD Primary Care Provider: Mahesh Perera MD History of Present Illness History of Present Illness Joleen Orr is a 85 year old female who was brought to the bleeding per rectum. Patient has dementia and did not communicate. The information is obtained from patient's son. The patient states that she had previously undergone colectomy for volvulus few years ago and has had dealt with constipation for a while. He states that she does not have a bowel movement when he does not do laxatives and therefore he gives her laxatives every day. Patient apparently had fresh blood per rectum yesterday and had bowel movements yesterday. She did not have any nausea or vomiting but due to the rectal bleeding she was brought to the emergency room where CT abdomen pelvis showed possible bowel obstruction and therefore she was admitted for observation. Today she does not have appear to have any abdominal pain, no nausea, vomiting nor has she had any diarrhea or bloody bowel movements. Review of Systems General: Reports: ROS unobtainable due to mental status Meds/Allergies Home Medications and Allergies Home Medications Medication Instructions Recorded Confirmed Last Taken Type acetaminophen 500 mg PO BID 01/09/21 01/26/21 01/09/21 History albuterol sulfate 2.5 mg INHALATION Q4H PRN 01/09/21 01/26/21 Unknown History diphenhydramine HCl [Allergy 25 mg PO BID 01/09/21 01/26/21 01/09/21 History Relief(diphenhydramin)] montelukast 10 mg PO DAILY 01/09/21 01/26/21 01/09/21 History multivitamin 1 tab PO QAM 01/09/21 01/26/21 01/09/21 History memantine 10 mg PO BID 30 Days #120 tab 01/13/21 01/26/21 Unknown Rx metformin 500 mg PO BID 01/26/21 01/26/21 Unknown History Allergies Allergy/AdvReac Type Severity Reaction Status Date / Time No Known Allergies Allergy Unverified 01/09/21 15:37 Current Medications Current Medications Generic Name Dose Route Start Last Admin Trade Name Freq PRN Reason Stop Dose Admin Potassium Chloride/Dextrose/Sod Cl 20 meq in 1,000 mls @ 125 mls/hr 01/25/21 20:40 01/26/21 06:13 D5-Ns 0.45% + Kcl 20 Meq IV 125 mls/hr .Q8H RUFINO Administration Dextrose/Sodium Chloride 1,000 mls @ 100 mls/hr 01/26/21 12:00 01/26/21 13:29 Dextrose 5%-Sod Chloride 0.45% IV 100 mls/hr .Q10H RUFINO Administration Pantoprazole Sodium 40 mg 01/25/21 20:40 01/25/21 21:41 Pantoprazole 40 Mg Sdv IVP 40 mg Q24H RUFINO Administration PFSH Acute PFSH: Medical History (Updated 01/26/21 @ 15:56 by Derrell Childers MD) Advanced dementia AMS (altered mental status) Breast cancer Cecal volvulus Congestive heart failure Diabetic foot ulcer Hypernatremia Pulmonary embolism Pulmonary fibrosis determined by high resolution computed tomography Severe protein-energy malnutrition Type 2 diabetes mellitus Surgical History H/O hemicolectomy History of cholecystectomy Vitals/I&O/Wt Last Vital Signs Temp 98.4 F 01/25/21 20:50 Pulse 74 01/26/21 15:22 Resp 16 01/26/21 14:15 BP 129/66 01/26/21 14:10 Pulse Ox 95 01/26/21 14:15 01/26/21 01/26/21 01/26/21 06:59 14:59 22:59 Intake Total 1000 / 1300 120 / 120 Balance 1000 / 1300 120 / 120 Weight last 48 hrs Weight 145 lb Physical Exam Narrative: EXAM NARRATIVE: HEENT: Normocephalic Eye: Sclera /conjunctiva normal Respiratory and chest: Bilateral clear breath sounds on auscultation Cardiovascular: Normal S1 and S2 heart sounds Abdomen: Soft to palpation, nontender, nondistended, well-healed, midline laparotomy scar Neurological: Oriented to place person and time Skin: Intact, no lesions appreciated on gross exam A&P Assessment and plan (1) SBO (small bowel obstruction): 85-year-old female who was noted to have dilated small bowel loops concerning for obstruction on CT scan performed in the emergency room. Patient has history of prior colectomy for volvulus. We will start her on a thickened liquid diet and advance as tolerated. Status: Acute (2) Hematochezia: Patient has large hemorrhoid but at present she is not bleeding and therefore we will continue with observation Status: Acute Consult Attestations Medical Necessity Statement: As per attending physician Coding Level of Care Code Acute Technical Research Scientist for g Fwd Diagnoses SBO (small bowel obstruction) K56.609 Hematochezia K92.1
--- NOTE | 2021-01-26 16:52 | PM.PN ---
Vitals/I&O/Wt Last Vital Signs Temp 98.4 F 01/25/21 20:50 Pulse 74 01/26/21 15:22 Resp 16 01/26/21 14:15 BP 129/66 01/26/21 14:10 Pulse Ox 95 01/26/21 14:15 01/26/21 01/26/21 01/26/21 06:59 14:59 22:59 Intake Total 1000 / 1300 120 / 120 Balance 1000 / 1300 120 / 120 Weight last 48 hrs Weight 65.771 kg Data : 01/26/21 12:35 01/26/21 04:25 A&P Assessment and plan (1) Ileus: Dilated small bowel loops concerning for obstruction on CT scan.Patient has history of prior colectomy for volvulus.Initially she was kept n.p.o. ,IV hydration.Patient is a poor historian.She was evaluated by general surgery and was started on thickened liquid diet. Status: Acute (2) SBO (small bowel obstruction): Status: Acute (3) Hypernatremia: Hypovolemic hypernatremia 2/2 dehydration. Continue D5 half-normal saline at 100 cc an hour Continue to monitor BMP Status: Acute (4) Rectal bleed: Likely secondary to hemorrhoids: Currently H&H is stable. Continue Protonix 40 mg I.V daily Status: Acute (5) Dehydration: Will manage with IV fluids. Will monitor electrolytes and kidney function Status: Acute (6) Acute metabolic encephalopathy: Status: Acute Additional A&P Information DVT prophylaxis. Teds and SCDs. No anticoagulation due to suspected rectal bleeding. Attestations Medical Necessity Statement*: Patient is still in hospital for management of acute metabolic encephalopathy, hypernatrmia Coding Level of Care Code Acute Computer Systems Software Architect for Chg Fwd Diagnoses Ileus K56.7 SBO (small bowel obstruction) K56.609 Hypernatremia E87.0 Rectal bleed K62.5 Dehydration E86.0 Acute metabolic encephalopathy G93.41
[2021-01-26 18:17] LABS: Hematocrit 38.7 % (37.0-47.0); Hemoglobin 11.9 g/dL (11.5-15.3)
--- NOTE | 2021-01-26 19:46 | PC.NURSE ---
SHIFT REPORT SHIFT REPORT FROM STACY HORNE PT ALERT AND RESTING IN BED-- NONVERBAL AND DOES NOT RESPOND TO COMMANDS. PLEASANT DEMEANOR. Q 2 HR TURNS. BED LOCKED AND LOWERED WITH CALL LIGHT IN PLACE. ASSESSMENT COMPLETE.
[2021-01-26] MEDS: pantoprazole 40 mg SDV IVP (21:13)
[2021-01-27] VITALS (18 sets, daily range): BP systolic 106–134; BP diastolic 53–73; PULSE 61–112; RESP 14–29; TEMP 36.4–37.7; O2SAT 93–100
--- NOTE | 2021-01-27 05:12 | PC.NURSE ---
TRANSFER REPORT CALLED TO STACY SOLORIO. PT TRANSFERRED TO ROOM 252-2 VIA BED. ALERT WITH NO S/S OF ACUTE DISTRESS. RN AT BEDSIDE TO RECEIVE PATIENT. IVF INFUSING ORDERED.
--- NOTE | 2021-01-27 05:19 | PC.NURSE ---
i reported high pulse 112 to nurse
[2021-01-27] MEDS: pantoprazole 40 mg SDV IVP (08:47)
[2021-01-27] MEDS: dextrose 5%-sod chloride 0.45% 1,000 ML 100 ML IV (08:49)
[2021-01-27 10:53] LABS: Basophils % 0.2 %; Eosinophils # 0.3 10^3/uL (0.0-0.8); Eosinophils % 2.3 %; Hematocrit 36.2 % (37.0-47.0); Hemoglobin 11.6 g/dL (11.5-15.3); Lymphocytes # 2.3 10^3/uL (0.8-4.8); Lymphocytes % 17.3 %; Mean Corpuscular Volume 99.7 fl (81-99); Mean Platelet Volume 9.6 fL (7.4-10.4); Monocytes # 0.7 10^3/uL (0.2-0.9); Monocytes % 5.3 %; Neutrophils # 9.98 10^3/uL (1.8-7.7); Neutrophils % 74.5 %; Nucleated Red Blood Cells % 0 %; Platelet Count 237 10^3/cmm (130-400); Red Blood Count 3.63 10^6/uL (4.1-5.3); Red Cell Distribution Width 15.7 % (12.1-15.1); White Blood Count 13.4 10^3/uL (4.0-10.0)
[2021-01-27 11:11] LABS: Blood Urea Nitrogen 12 mg/dL (8-23); Calcium 7.7 mg/dL (8.5-10.5); Carbon Dioxide 25 mmol/L (22-29); Chloride 103 mmol/L (98-107); Glucose 149 mg/dL (65-115); Osmolality Calculated 281 mOsm/kg (285-295); Sodium 134 mmol/L (136-145)
[2021-01-27 11:14] LABS: Anion Gap 9.4 (5-19); Potassium 3.4 mmol/L (3.5-5.1)
--- NOTE | 2021-01-27 13:48 | P.PN_ITS ---
Subjective Subjective: Interval history: Patient has not had any further episodes of bleeding per rectum Vitals/I&O/Wt Last Vital Signs Temp 97.8 F 01/27/21 11:05 Pulse 65 01/27/21 11:05 Resp 16 01/27/21 11:05 BP 134/69 01/27/21 11:05 Pulse Ox 98 01/27/21 11:05 01/26/21 01/27/21 01/27/21 22:59 06:59 14:59 Intake Total 1060 / 2166.667 986.667 / 2166.667 976.667 / 976.667 Balance 1060 / 2166.667 986.667 / 2166.667 976.667 / 976.667 Physical Exam Narrative: EXAM NARRATIVE: Abdomen: Soft, nontender, nondistended Data : 01/27/21 10:38 01/27/21 10:38 A&P Assessment and plan (1) SBO (small bowel obstruction): 85-year-old female who was noted to have dilated small bowel loops concerning for obstruction on CT scan performed in the emergency room. Patient has history of prior colectomy for volvulus. Patient has not had any nausea, v omiting but she has not had any bowel movement or bleeding per rectum. Advance diet as tolerated, patient's son who is a primary caregiver has brought food from home which we will try today. If she tolerates that she could potentially go home pending evaluation of medical status by Dr. Arnold. Patient does not need a follow-up in my clinic. Status: Acute (2) Hematochezia: Patient has large hemorrhoid but at present she is not bleeding. Discussed with the patient's son that she might have episodes of bleeding per rectum most likely secondary to hemorrhoids but if she were to develop persistent severe bleeding then she might need a hemorrhoidectomy Status: Acute Attestations Medical Necessity Statement*: Bowel obstruction, bleeding per rectum Coding Level of Care Code Acute Sail Finisher Hand for [facility] Diagnoses SBO (small bowel obstruction) K56.609 Hematochezia K92.1
--- NOTE | 2021-01-27 14:38 | P.PN_ITS ---
Subjective Subjective: Interval history: No bright red blood per rectum, tolerating diet well. H&H is stable. Hypernatremia has resolved . Medications: Reviewed: Yes Vitals/I&O/Wt Last Vital Signs Temp 97.8 F 01/27/21 11:05 Pulse 65 01/27/21 11:05 Resp 16 01/27/21 11:05 BP 134/69 01/27/21 11:05 Pulse Ox 98 01/27/21 11:05 01/26/21 01/27/21 01/27/21 22:59 06:59 14:59 Intake Total 1060 / 1180 986.667 / 2166.667 976.667 / 976.667 Balance 1060 / 1180 986.667 / 2166.667 976.667 / 976.667 Physical Exam Narrative: EXAM NARRATIVE: Awake and alert HENMT: COMMON NORMALS: normocephalic and atraumatic HEAD & SCALP: normocephalic and atraumatic Resp: COMMON NORMALS: clear to auscultation bilaterally AUSCULTATION: clear to auscultation bilaterally Cardio: COMMON NORMALS: regular rate, regular rhythm, S1 normal heart sound present, S2 normal heart sound present, No gallops present (Cardio), No murmurs present (Cardio), No rub (Cardio) and Peripheral pulses 2+ throughout RATE: regular rate RHYTHM: regular rhythm HEART SOUNDS: S1 normal heart sound present and S2 normal heart sound present PERIPHERAL PULSES: Peripheral pulses 2+ throughout GI: COMMON NORMALS: Normal to inspection, nondistended, normoactive bowel sounds present, Soft to palpation, non-tender, No hepatosplenomegaly present and no masses AUSCULTATION: Yes normoactive bowel sounds PALPATION: Yes Soft to palpation and Yes No hepatosplenomegaly present RECTAL EXAM: deferred Extremity: COMMON NORMALS: no clubbing, cyanosis or edema and no pedal edema Data : 01/27/21 10:38 01/27/21 10:38 A&P Assessment and plan (1) Ileus: Dilated small bowel loops concerning for obstruction on CT scan.Patient has history of prior colectomy for volvulus.Initially she was kept n.p.o. ,IV hydration.Patient is a poor historian.She was evaluated by general surgery and was started on thickened liquid diet. Status: Acute (2) SBO (small bowel obstruction): Status: Acute (3) Hypernatremia: Hypovolemic hypernatremia 2/2 dehydration. Continue D5 half-normal saline at 100 cc an hour Continue to monitor BMP Status: Acute (4) Rectal bleed: Likely secondary to hemorrhoids: Currently H&H is stable. Continue Protonix 40 mg I.V daily Status: Acute (5) Dehydration: Will manage with IV fluids. Will monitor electrolytes and kidney function Status: Acute (6) Acute metabolic encephalopathy: Status: Acute Additional A&P Information DVT prophylaxis. Teds and SCDs. No anticoagulation due to suspected rectal bleeding. Attestations Medical Necessity Statement*: Patient needs to be in hospital for management above defined problems Coding Level of Care Code Acute Distribution Designer for g Fwd Diagnoses Ileus K56.7 SBO (small bowel obstruction) K56.609 Hypernatremia E87.0 Rectal bleed K62.5 Dehydration E86.0 Acute metabolic encephalopathy G93.41
[2021-01-28 04:00] VITALS: BP 143/76; PULSE 73; RESP 16; TEMP 37.1; O2SAT 96
[2021-01-28 05:25] LABS: Basophils % 0.2 %; Eosinophils # 0.3 10^3/uL (0.0-0.8); Eosinophils % 2.1 %; Hematocrit 39.2 % (37.0-47.0); Hemoglobin 12.7 g/dL (11.5-15.3); Lymphocytes # 2.6 10^3/uL (0.8-4.8); Mean Corpuscular HGB Conc 32.4 g/dL (30.0-36.0); Mean Corpuscular Hemoglobin 32.6 pg (28.0-34.0); Mean Corpuscular Volume 100.5 fl (81-99); Mean Platelet Volume 9.8 fL (7.4-10.4); Monocytes # 0.7 10^3/uL (0.2-0.9); Monocytes % 5.6 %; Neutrophils % 71.6 %; Nucleated Red Blood Cells % 0 %; Platelet Count 268 10^3/cmm (130-400); Red Cell Distribution Width 15.6 % (12.1-15.1); White Blood Count 12.9 10^3/uL (4.0-10.0)
[2021-01-28 05:51] LABS: Anion Gap 12.6 (5-19); Blood Urea Nitrogen 9 mg/dL (8-23); Calcium 7.9 mg/dL (8.5-10.5); Carbon Dioxide 22 mmol/L (22-29); Chloride 107 mmol/L (98-107); Glucose 119 mg/dL (65-115); Osmolality Calculated 286 mOsm/kg (285-295); Potassium 3.6 mmol/L (3.5-5.1); Sodium 138 mmol/L (136-145)
[2021-01-28] MEDS: dextrose 5%-sod chloride 0.45% 1,000 ML 30 ML IV (05:58)
[2021-01-28 07:22] VITALS: BP 150/74; PULSE 78; RESP 18; TEMP 36.8; O2SAT 91
[2021-01-28 07:59] VITALS: PULSE 81; RESP 18; O2SAT 98
[2021-01-28] MEDS: pantoprazole 40 mg SDV IVP (09:45)
--- NOTE | 2021-01-28 10:26 | PC.SOCIAL ---
IMM update Discussed patient's medicare rights with patient's son. Verbalized understanding. Provided him with a copy and placed initialed, timed, date copy in chart.
--- NOTE | 2021-01-28 11:12 | PM.DCS ---
Discharge Providers Date of Admission: 01/25/21 20:24 Date of Discharge: January 28, 2021 Attending Provider at Admission: Mk Santa MD Attending Provider at Discharge: Jayjay Arnold MD Primary Care Provider: Mahesh Perera MD Diagnoses at Discharge Discharge Diagnosis (1) Ileus: Status: Resolved (2) SBO (small bowel obstruction): Status: Acute (3) Hypernatremia: Status: Acute (4) Rectal bleed: Status: Acute (5) Dehydration: Status: Acute (6) Acute metabolic encephalopathy: Status: Acute Reason for Visit Reason for Visit: thinks she is impacted Hospital Course Hospital Course HPI:Dr. Goldman,Homero 85 year old female with past medical history of advanced dementia, prior colon resection, diabetes, recent hospitalization for dehydration, chronic constipation who is brought by her family to emergency room due to decreased mental state and rectal blood. According to the family there was blood in the diapers with stool. It was red bright blood without clots. No other significant changes. No nausea or vomiting. CT of the abdomen and pelvis revealed possible small bowel obstruction or ileus. The patient also has evidence of significant dehydration. Patient was admitted for the management of: Acute metabolic encephalopathy, ileus/sbo, rectal bleed, hypernatremia, dehydration. She was initially kept n.p.o. but later she was started on diet she was able to pass flatus and stool, had no nausea vomiting, was tolerating diet well. She was kept on IV hydration, for hypovolemic hypernatremmia, to which she responded well, serum sodium was normalized at the time of discharge, there was no evidence of rectal bleed during the hospital stay, mentioned rectal bleed at home is likely secondary to hemorrhoids h&h was stable during the hospital stay, she was kept on Protonix. Patient responded well to the above medical management at the time of discharge she was at her baseline mentation, she was afebrile hemodynamically stable.She was discharged in stable condition to home to follow-up with her primary care physician as an outpatient. Physical Exam Narrative: EXAM NARRATIVE: Awake and alert HENMT: COMMON NORMALS: normocephalic and atraumatic HEAD & SCALP: normocephalic and atraumatic Resp: COMMON NORMALS: clear to auscultation bilaterally AUSCULTATION: clear to auscultation bilaterally Cardio: COMMON NORMALS: regular rate, regular rhythm, S1 normal heart sound present, S2 normal heart sound present, No gallops present (Cardio), No murmurs present (Cardio), No rub (Cardio) and Peripheral pulses 2+ throughout RATE: regular rate RHYTHM: regular rhythm HEART SOUNDS: S1 normal heart sound present and S2 normal heart sound present PERIPHERAL PULSES: Peripheral pulses 2+ throughout GI: COMMON NORMALS: Normal to inspection, nondistended, normoactive bowel sounds present, Soft to palpation, non-tender, No hepatosplenomegaly present and no masses AUSCULTATION: Yes normoactive bowel sounds PALPATION: Yes Soft to palpation and Yes No hepatosplenomegaly present RECTAL EXAM: deferred Extremity: COMMON NORMALS: no clubbing, cyanosis or edema and no pedal edema Discharge Data Data Completed and Pending: Completed Studies During Hospitalization Category Date Time Status CT abdomen pelvis w con* [id number] Stat Cat Scan 01/25/21 13:52 Completed Pending at discharge Category Date Time Status Basic Metabolic P sarah AM LABS Lab 01/29/21 04:00 Ordered Basic Metabolic P sarah AM LABS Lab 01/30/21 04:00 Ordered Complete Blood Co unt w/Auto AM LABS Lab 01/29/21 04:00 Ordered Complete Blood Co unt w/Auto AM LABS Lab 01/30/21 04:00 Ordered Labs from last 24 hours 01/28/21 01/28/21 04:35 04:35 WBC 12.9 H RBC 3.90 L Hgb 12.7 Hct 39.2 MCV 100.5 H MCH 32.6 MCHC 32.4 RDW 15.6 H Plt Count 268 MPV 9.8 Neut % (Auto) 71.6 Lymph % (Auto) 20.0 [place] % (Auto) 5.6 Eos % (Auto) 2.1 Baso % (Auto) 0.2 Neut # (Auto) 9.20 H Lymph # (Auto) 2.6 [place] # (Auto) 0.7 Eos # (Auto) 0.3 Baso # (Auto) 0.0 Nucleated RBC % (a uto) 0 Nucleated RBCs # 0.0 Sodium 138 Potassium 3.6 Chloride 107 Carbon Dioxide 22 Anion Gap 12.6 BUN 9 Creatinine 0.4 L GFR Calculation Not Reportable Glucose 119 H Calculated Osmolal ity 286 Calcium 7.9 L Vitals: Last Vital Signs Temp 98.2 F 01/28/21 07:22 Pulse 81 01/28/21 07:59 Resp 18 01/28/21 07:59 BP 150/74 01/28/21 07:22 Pulse Ox 98 01/28/21 07:59 Discharge Plan Discharge Patient Disposition: Home Condition: Stable Prescriptions: Continued albuterol sulfate 2.5 mg /3 mL (0.083 %) solution for nebulization 2.5 mg inhalation Q4H PRN (Reason: Shortness Of Breath) RF: 0 acetaminophen 500 mg Tablet 500 mg PO BID RF: 0 diphenhydramine HCl [Allergy Relief(diphenhydramin)] 25 mg Tablet 25 mg PO BID RF: 0 montelukast 10 mg tablet 10 mg PO DAILY RF: 0 multivitamin Tablet 1 tab PO QAM RF: 0 memantine 5 mg Tablet 10 mg PO BID 30 Days Qty: 120 RF: 0 metformin 500 mg tablet 500 mg PO BID RF: 0 Discharge Orders: Discharge Order (Routine); Ordered 01/28/21 Ordered By: Jayjay Arnold Referrals: Mahesh Perera MD [Primary Care Provider] - 2 weeks (Please call on Friday to schedule an appointment to be seen in two weeks.) Discharge Diet: Soft Mechanical Discharge Activity: Limit activity as instructed Patient Instructions: Dehydration (DC), Bowel Obstruction (DC), Encephalopathy (DC), Opioid Safety Discharge Attestations Time Spent in Discharge Care*: less than 30 min Specific Discharge Activities: educating patient, educating and/or supporting family/caregiver, discussing with pcp/other providers, discussing with cyanide case hardener/social workers/dc planners, documenting/other paperwork and evaluating patient/reviewing data Status at Discharge: Cognitive status at discharge: severely impaired cognition, Behavioral status at discharge: cooperative, Quality Metrics Clinical Quality Measures During this hospital stay, did patient experience: None Coding Level of Care Code Acute Chg FW DC note Diagnoses Ileus K56.7 SBO (small bowel obstruction) K56.609 Hypernatremia E87.0 Rectal bleed K62.5 Dehydration E86.0 Acute metabolic encephalopathy G93.41
[2021-01-28 11:54] VITALS: PULSE 81; RESP 18; O2SAT 98
== END 2021-01-28 11:55 | disposition home or self-care (01) | DRG 388 ==
LOC: ER 13:40 → ICU 01-26 06:51 → MEDSURG 01-27 04:43
PROVIDERS: Internal Medicine; Admitting Provider Internal Medicine; Emergency Provider Family Medicine; PCP Family Medicine; Visit Provider Internal Medicine
DX: K56.7 Ileus, unspecified (principal); G93.41 Metabolic encephalopathy; E87.0 Hyperosmolality and hypernatremia; K56.609 Unspecified intestinal obstruction, unspecified as to partial versus complete obstruction; K64.9 Unspecified hemorrhoids; F03.90 Unspecified dementia, unspecified severity, without behavioral disturbance, psychotic disturbance, mood disturbance, and anxiety; Z90.49 Acquired absence of other specified parts of digestive tract; Z85.3 Personal history of malignant neoplasm of breast; E86.0 Dehydration; E11.9 Type 2 diabetes mellitus without complications; Z86.711 Personal history of pulmonary embolism; J84.10 Pulmonary fibrosis, unspecified; K59.09 Other constipation; Z79.51 Long term (current) use of inhaled steroids; Z79.84 Long term (current) use of oral hypoglycemic drugs
CPT/HCPCS: 36415; 74177; 80048; 80053; 81003; 84443; 85014; 85018; 85025; 85610; 85730; 92610; C9113; J0744; J7799; Q9967; S0030